=== PATIENT | male | born 1965 | race Caucasian/White ===

== ENCOUNTER 2017-06-21 18:16 | Emergency (ER) | payer OTHER ==
[2017-06-21] MEDS ORDERED: Ketorolac INJ* 30 MG/ML 1 ML VIAL IV PUSH ONE (19:46)
[2017-06-21] MEDS ORDERED: Ondansetron INJ* 2 MG/ML VIAL IV ONE ×2 (19:46→21:59)
[2017-06-21] MEDS ORDERED: HYDROmorphone* 1 MG/ML 1 ML SYR IV SLOW PU ONE ×2 (19:46→21:26)
[2017-06-21] MEDS: NS 0.9% 1000 ML* 2,000 ML IV ONE ×2 (19:58→20:41)
[2017-06-21] MEDS ORDERED: Morphine INJ* 4 MG/ML 1 ML SYRINGE IV ONE (20:14)
[2017-06-21 20:24] LABS: Albumin 4.6 g/dL (3.2-5.2); BUN/Creatinine Ratio 14.4 (8-20); Calcium 9.7 mg/dL (8.6-10.3); EGFR African American 105.4 (>60); EGFR Non-African American 81.9 (>60); Globulin 2.7 g/dL (2-4); Potassium 3.7 mmol/L (3.5-5.0); Total Bilirubin 0.4 mg/dL (0.2-1.0); Total Protein 7.3 g/dL (6.4-8.9)
[2017-06-21 20:26] LABS: Hematocrit 44 % (42-52); Hemoglobin 14.7 g/dl (14.0-18.0); Mean Corpuscular HGB Conc 34 g/dl (31-36); Mean Corpuscular Hemoglobin 31 pg (27-31); Mean Corpuscular Volume 91 fL (80-94); Mean Platelet Volume 9 um3 (7.4-10.4); Red Blood Count 4.78 10^6/ul (4.0-5.4); Red Cell Distribution Width 13 % (10.5-15); White Blood Count 10.4 10^3/ul (3.5-10.8)
[2017-06-21 21:24] LABS: Urine Bilirubin Negative (Negative); Urine Glucose Negative (Negative); Urine Nitrite Negative (Negative)
[2017-06-21] MEDS ORDERED: Ondansetron INJ* 2 MG/ML VIAL ONE (22:00)
--- NOTE | 2017-06-21 22:32 | RAD ---
CLINICAL HISTORY: Left flank pain. Surgical history includes appendectomy. COMPARISON: None TECHNIQUE: Noncontrast CT examination of the abdomen and pelvis from the lung bases through the initial tuberosities. FINDINGS: VISUALIZED LUNG BASES: The visualized lung bases are grossly clear. There is no pleural effusion. ABDOMEN AND PELVIS: Evaluation of the solid organs and vasculature is limited without intravenous contrast. The liver, spleen, pancreas and adrenal glands are grossly normal in appearance. The gallbladder is normal. There is a punctate calcification at the mid-level left kidney. There is no hydronephrosis or perinephric stranding bilaterally. Evaluation of the gastrointestinal tract is limited without oral contrast. The small and large bowel are not distended.The appendix is not visualized consistent with the patient's reported surgical history. At the descending colon there is a length of colon that exhibits mild wall thickening (coronal image 60 and axial image 95) measuring up to 7 mm in thickness. There is no definite pericolonic inflammatory change. There is no gross retroperitoneal or mesenteric lymphadenopathy. The pelvic viscera is normal in appearance. There is scattered calcified atherosclerosis of the lower abdominal aorta extending into the bilateral common iliac arteries. Degenerative changes include multilevel loss of intervertebral disc height involving the lower thoracic and lumbar spine.There are no sinister bone lesions. IMPRESSION: 1. There is one nonobstructing punctate calcification in the left kidney but no signs of hydronephrosis or perinephric stranding. 2. There is a short segment of descending colon exhibiting wall thickening up to 7 mm. Potentially this could represent a segment of colitis or simply be due to underdistention. Evaluation of the colon is limited due to lack of oral contrast. Particularly if this patient has never had screening colonoscopy in the past, direct visualization is advised after the patient's acute symptoms resolve. 3. Diverticulosis at the rectosigmoid colon but this portion of the colon is not definitely exhibit acute inflammatory changes characteristic of diverticulitis. 4. Additional chronic, degenerative and iatrogenic changes described in the body the report.
[2017-06-21] MEDS ORDERED: Orphenadrine Citrate IV* 30 MG/ML 2 ML VIAL IV ONE (23:18)
--- NOTE | 2017-06-21 23:18 | ED ---
Back Pain - HPI Summary HPI Summary: 52M presents with severe left flank pain today. He has history of kidney stones but states that is does not feel the same. He says that is feels like his entire left side is spasming. He denies any injury. He admits to nausea from the pain. He has not taken anything for the pain. He denies any hematuria, frequency, dysuria, fever, diarrhea or constipation. He has never had this pain before. He did have appendix out when younger. - History of Current Complaint Chief Complaint: EDBackInjuryPain Stated Complaint: LOWER BACK PAIN Time Seen by Provider: 06/21/17 19:43 Pain Intensity: 9 - Allergies/Home Medications Allergies/Adverse Reactions: Allergies Allergy/AdvReac Type Severity Reaction Status Date / Time Bupropion [From Wellbutrin] Allergy Unknown Verified 06/21/17 19:45 Reaction Details PMH/Surg Hx/FS Hx/Imm Hx Endocrine/Hematology History: Denies: Hx Anticoagulant Therapy Cardiovascular History: Reports: Hx Hypertension - Surgical History Surgery Procedure, Year, and Place: [facility] Infectious Disease History: No Infectious Disease History: Denies: Traveled Outside the [place] in Last 30 Days - Family History Known Family History: Positive: Cardiac Disease - Social History Alcohol Use: None Substance Use Type: Reports: None Smoking Status (MU): Current Every Day Smoker Review of Systems Negative: Fever Negative: Chest Pain Negative: Shortness Of Breath Positive: Abdominal Pain, Nausea. Negative: Vomiting, Diarrhea Positive: flank pain. Negative: dysuria All Other Systems Reviewed And Are Negative: Yes Physical Exam Triage Information Reviewed: Yes Vital Signs On Initial Exam: Initial Vitals Temp Pulse Resp BP Pulse Ox 99.1 F 74 17 169/96 96 06/21/17 18:19 06/21/17 18:19 06/21/17 18:19 06/21/17 18:19 06/21/17 18:19 Vital Signs Reviewed: Yes Appearance: Positive: Pain Distress Skin: Positive: Warm, Dry Head/Face: Positive: Normal Head/Face Inspection Eyes: Positive: Normal, Conjunctiva Clear ENT: Positive: Normal ENT inspection, Pharynx normal, TMs normal Respiratory/Lung Sounds: Positive: Clear to Auscultation, Breath Sounds Present Cardiovascular: Positive: Normal, RRR Abdomen Description: Positive: Soft, CVA Tenderness (L), Other: - tenderness left side abdomen severe Bowel Sounds: Positive: Present - Marcellus Coma Scale Coma Scale Total: 15 Diagnostics - Vital Signs Vital Signs Temp Pulse Resp BP Pulse Ox 06/21/17 22:17 59 16 140/79 94 06/21/17 22:06 16 06/21/17 20:39 18 06/21/17 20:12 98.6 F 06/21/17 19:58 20 06/21/17 18:19 99.1 F 74 17 169/96 96 - Laboratory Lab Results: Lab Results 06/21/17 06/21/17 06/21/17 Range/Units 20:00 20:00 21:15 WBC 10.4 (3.5-10.8) 10^3/ul RBC 4.78 (4.0-5.4) 10^6/ul Hgb 14.7 (14.0-18.0) g/dl Hct 44 (42-52) % MCV 91 (80-94) fL MCH 31 (27-31) pg MCHC 34 (31-36) g/dl RDW 13 (10.5-15) % Plt Count 247 (150-450) 10^3/ul MPV 9 (7.4-10.4) um3 Neut % (Auto) 63.9 (38-83) % Lymph % (Auto) 27.2 (25-47) % [place] % (Auto) 6.7 (1-9) % Eos % (Auto) 1.6 (0-6) % Baso % (Auto) 0.6 (0-2) % Absolute Neuts (auto) 6.7 (1.5-7.7) 10^3/ul Absolute Lymphs (auto) 2.8 (1.0-4.8) 10^3/ul Absolute Monos (auto) 0.7 (0-0.8) 10^3/ul Absolute Eos (auto) 0.2 (0-0.6) 10^3/ul Absolute Basos (auto) 0.1 (0-0.2) 10^3/ul Absolute Nucleated RBC 0.01 10^3/ul Nucleated RBC % 0.1 Sodium 140 (133-145) mmol/L Potassium 3.7 (3.5-5.0) mmol/L Chloride 106 (101-111) mmol/L Carbon Dioxide 26 (22-32) mmol/L Anion Gap 8 (2-11) mmol/L BUN 14 (6-24) mg/dL Creatinine 0.97 (0.67-1.17) mg/dL Est GFR ( Amer) 105.4 (>60) Est GFR (Non-Af Amer) 81.9 (>60) BUN/Creatinine Ratio 14.4 (8-20) Glucose 129 H (70-100) mg/dL Calcium 9.7 (8.6-10.3) mg/dL Total Bilirubin 0.40 (0.2-1.0) mg/dL AST 24 (13-39) U/L ALT 24 (7-52) U/L Alkaline Phosphatase 63 (34-104) U/L C-React Prot High Sens 0.40 mg/L Total Protein 7.3 (6.4-8.9) g/dL Albumin 4.6 (3.2-5.2) g/dL Globulin 2.7 (2-4) g/dL Albumin/Globulin Ratio 1.7 (1-3) Lipase 23 (11.0-82.0) U/L Urine Color Yellow Urine Appearance Clear Urine pH 5.0 (5-9) Ur Specific [place] 1.014 (1.010-1.030) Urine Protein Negative (Negative) Urine Ketones Negative (Negative) Urine Blood Negative (Negative) Urine Nitrate Negative (Negative) Urine Bilirubin Negative (Negative) Urine Urobilinogen Negative (Negative) Ur Leukocyte Esterase Negative (Negative) Urine Glucose Negative (Negative) Result Diagrams: 06/21/17 20:00 06/21/17 20:00 Lab Statement: Any lab studies that have been ordered have been reviewed, and results considered in the medical decision making process. Back Pain Course/Dx - Course Course Of Treatment: 52M presents with severe left flank pain today. He has history of kidney stones but states that is does not feel the same. He says that is feels like his entire left side is spasming. He denies any injury. He admits to nausea from the pain. He has not taken anything for the pain. He denies any hematuria, frequency, dysuria, fever, diarrhea or constipation. He has never had this pain before. on exam CVA tenderness left, tender across left abdomen. labs normal. CT no stone. do not suspect colitis as labs and symptoms do not correspond. after pain medication felt better. discussed likely muscle spasm? will treat with pain meds and muscle relaxer and told to follow up with primary. patient understands and agrees with plan. - Diagnoses Differential Diagnosis/HQI/PQRI: Positive: Strain, Sprain, Other - kidney stone Provider Diagnoses: Back pain Discharge - Discharge Plan Condition: Good Disposition: HOME Prescriptions: Methocarbamol [Robaxin-750 MG TAB] 750 mg PO TID #9 tab Methylprednisolone [Medrol Dosepak 4 MG*] 4 mg PO .SEE [employer]RE[employer]STRUCTION #1 packet oxyCODONE/Acetamin 5/325 MG* [Percocet 5/325 TAB*] 1 tab PO Q6H PRN #12 tab MDD 4 PRN Reason: Pain Patient Education Materials: Back Pain (ED) Referrals: [facility] [Outside] Additional Instructions: Follow directions on package for Medrol pack Take muscle relaxers three times a day for 3 days Use ibuprofen or Tylenol for pain every 6 hours ice/heat area, move as much as possible Follow up with primary within 5 days Return to ED if unable to ambulate or develop any new or worsening symptoms
[2017-06-21] MEDS ORDERED: oxyCODONE/Acetamin 5/325 MG* TAB PO ONE (23:21)
[2017-06-22 02:14] VITALS: BP 149/79
== END 2017-06-22 02:08 | disposition home or self-care (01) ==
LOC: ED 18:16
DX: M54.5 Low back pain (principal); F17.210 Nicotine dependence, cigarettes, uncomplicated
CPT/HCPCS: 36415; 74176; 80053; 81003; 83690; 85025; 86141; 99283; A9270-GY; J1170; J1885; J2270; J2360; J2405

== ENCOUNTER 2017-06-30 12:03 | Emergency (ER) | payer OTHER ==
--- NOTE | 2017-06-30 13:06 | ED ---
Throat Pain/Nasal Congestion - HPI Summary HPI Summary: 52 male presents with complaints of left eye pain after grinding some metal at home, while wearing safety glasses however feeling as though something got into his eye. Patient states this occurred just prior to arrival. He tried flushing it out and looking for object before arrival however was unsuccessful and was unable to see any foreign body. Patient states his vision in left eye is slightly blurry he just thinks it is from the tearing and rubbing. Admits to tearing, denies discharge and bleeding. No vision loss or photophobia. No other complaints at this time. PMHx significant for HTN and PTSD. - History of Current Complaint Chief Complaint: EDEyeProblem Time Seen by Provider: 06/30/17 12:08 Hx Obtained From: Patient Onset/Duration: Sudden Onset, Lasting Hours - 1-2, Still Present Severity: Moderate Cough: None - Allergies/Home Medications Allergies/Adverse Reactions: Allergies Allergy/AdvReac Type Severity Reaction Status Date / Time Bupropion [From Wellbutrin] Allergy Unknown Verified 06/30/17 12:33 Reaction Details PMH/Surg Hx/FS Hx/Imm Hx Endocrine/Hematology History: Denies: Hx Anticoagulant Therapy Cardiovascular History: Reports: Hx Hypertension Psychiatric History: Reports: Hx Post Traumatic Stress Disorder - Surgical History Surgery Procedure, Year, and Place: [facility] - Immunization History Immunizations Up to Date: Yes Infectious Disease History: No Infectious Disease History: Denies: Traveled Outside the [place] in Last 30 Days - Family History Known Family History: Positive: Cardiac Disease - Social History Alcohol Use: None Substance Use Type: Reports: None Smoking Status (MU): Current Every Day Smoker Review of Systems Constitutional: Negative Positive: Blurred Vision, Drainage - tearing, Other - pain ENT: Negative Cardiovascular: Negative Respiratory: Negative Neurological: Negative All Other Systems Reviewed And Are Negative: Yes Physical Exam Triage Information Reviewed: Yes Vital Signs On Initial Exam: Initial Vitals Temp Pulse Resp BP Pulse Ox 98.1 F 73 18 148/91 98 06/30/17 12:04 06/30/17 12:04 06/30/17 12:04 06/30/17 12:04 06/30/17 12:04 Vital Signs Reviewed: Yes Appearance: Positive: Well-Appearing, Well-Nourished, Pain Distress - moderate, very jumpy with certain eye movement or opening eye Skin: Positive: Warm, Skin Color Reflects Adequate Perfusion, Dry. Negative: Erythema @ Head/Face: Positive: Normal Head/Face Inspection Eyes: Positive: EOMI, YU, Conjunctiva Inflammed - left appears irritated, Other: - clear tearing, drainage left. no FB noted on regular exam or fluroscein stain. no uptake noted. somewhat difficult exam due to patient' pain tolerance. normal fundoscopic exam from what able to see. lids appear normal. no obvious rust rings noted ENT: Positive: Hearing grossly normal, Pharynx normal Neck: Positive: Supple, Nontender Respiratory/Lung Sounds: Positive: Clear to Auscultation, Breath Sounds Present. Negative: Rales, Rhonchi, Wheezes Cardiovascular: Positive: Normal, RRR, Pulses are Symmetrical in both Upper and Lower Extremities. Negative: Murmur, Rub Musculoskeletal: Positive: Normal, Strength/ROM Intact Neurological: Positive: Normal, Sensory/Motor Intact, Alert, Oriented to Person Place, Time Psychiatric: Positive: Affect/Mood Appropriate, Anxious Procedures - Eye Procedure Alcaine Drops Administered: Yes - fluroscein stain completed, no uptake, no FB noted Diagnostics - Vital Signs Vital Signs Temp Pulse Resp BP Pulse Ox 06/30/17 12:19 98.1 F 73 18 148/91 98 06/30/17 12:04 98.1 F 73 18 148/91 98 - Laboratory Lab Statement: Any lab studies that have been ordered have been reviewed, and results considered in the medical decision making process. EENT Course/Dx - Course Course Of Treatment: no FB or corneal abrasion obviously noted with PE exam and fluroscein stain. Patient had some relief after applying tetracaine drops hwever was still in some pain. Unable to open his eye without pain. Tearing and blurry vision. Due to JOSE spoke with Dr Guevara opthomology who states to have him follow up today in his office at 3:45. Concern for smaller debris/FB that may be in eye due to patient's description of pain and actions. Difficult to examine in ED. - Differential Diagnoses Differential Diagnoses: Abrasion, Foreign Body, Keratitis - Diagnoses Provider Diagnoses: Acute left eye pain - Provider Notifications Discussed Care Of Patient With: Dr Guevara Time Discussed With Above Provider: 13:30 Instructed by Provider To: Send To Office Now - 3:45pm Discharge - Discharge Plan Condition: Stable Disposition: HOME Patient Education Materials: Corneal Abrasion (ED), Eye Foreign Body (ED) Referrals: No Primary Care Phys,NOPCP [Primary Care Provider] - Mohinder Anton MD [Medical Doctor] - Additional Instructions: Please go to the eye doctor at 3:45pm, as they are expecting you for further evaluation and treatment. Address and phone number are below.
[2017-06-30] MEDS ORDERED: Naproxen TAB* 250 MG PO ONE (13:10)
[2017-06-30 13:49] VITALS: BP 160/76
== END 2017-06-30 13:50 | disposition home or self-care (01) ==
LOC: ED 12:03
DX: H57.12 Ocular pain, left eye (principal); H53.8 Other visual disturbances; F17.210 Nicotine dependence, cigarettes, uncomplicated
CPT/HCPCS: 99281; A9270-GY

== ENCOUNTER 2017-08-27 09:13 | Emergency (ER) | payer SELFPAY ==
[2017-08-27 10:00] VITALS: BP 139/75
[2017-08-27] MEDS ORDERED: Ondansetron ODT TAB* 4 MG PO ONE ×2 (10:06→11:08)
[2017-08-27] MEDS ORDERED: hydrOXYzine HCL TAB* 50 MG PO ONE (10:07)
[2017-08-27] MEDS ORDERED: hydrOXYzine HCL TAB* 25 MG PO ONE (10:25)
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
== END 2017-08-27 11:30 | disposition home or self-care (01) ==
LOC: UCEAST 09:13
DX: F41.0 Panic disorder [episodic paroxysmal anxiety] (principal); F43.10 Post-traumatic stress disorder, unspecified; I10 Essential (primary) hypertension; K21.9 Gastro-esophageal reflux disease without esophagitis; F17.210 Nicotine dependence, cigarettes, uncomplicated; Z79.82 Long term (current) use of aspirin
CPT/HCPCS: 93005; 99212; A9270-GY; G0463

== ENCOUNTER 2017-09-17 10:31 | Emergency (ER) | payer SELFPAY ==
[2017-09-17] MEDS ORDERED: NS 0.9% 1000 ML* 1,000 ML IV ONE ×2 (11:18→11:37)
[2017-09-17] MEDS ORDERED: Morphine INJ* 4 MG/ML 1 ML CARPUJECT IV ONE ×2 (11:37→13:22)
[2017-09-17] MEDS ORDERED: Ondansetron INJ* 2 MG/ML VIAL IV ONE (11:37)
[2017-09-17 12:54] LABS: Hematocrit 45 % (42-52); Hemoglobin 15.2 g/dl (14.0-18.0); Mean Corpuscular HGB Conc 34 g/dl (31-36); Mean Corpuscular Hemoglobin 30 pg (27-31); Mean Corpuscular Volume 89 fL (80-94); Mean Platelet Volume 9 um3 (7.4-10.4); Red Blood Count 5.02 10^6/ul (4.0-5.4); Red Cell Distribution Width 13 % (10.5-15); White Blood Count 9.8 10^3/ul (3.5-10.8)
[2017-09-17 13:00] LABS: Urine Bilirubin Negative (Negative); Urine Glucose Negative (Negative); Urine Nitrite Negative (Negative)
[2017-09-17 13:06] LABS: ALT 18 U/L (7-52); AST 24 U/L (13-39); Albumin 4.6 g/dL (3.2-5.2); Alkaline Phosphatase 58 U/L (34-104); Anion Gap 6 mmol/L (2-11); Blood Urea Nitrogen 17 mg/dL (6-24); C Reactive Protein < 1.00 mg/L (< 5.00); CO2 Carbon Dioxide 25 mmol/L (22-32); Calcium 9.9 mg/dL (8.6-10.3); Chloride 108 mmol/L (101-111); EGFR African American 122.7 (>60); EGFR Non-African American 95.4 (>60); Globulin 2.6 g/dL (2-4); Glucose 103 mg/dL (70-100); Lipase 24 U/L (11.0-82.0); Potassium 4.1 mmol/L (3.5-5.0); Sodium 139 mmol/L (133-145); Total Protein 7.2 g/dL (6.4-8.9)
[2017-09-17] MEDS ORDERED: Iohexol 300* (CONTRAST) 10 ML SDV IV ONE (14:11)
--- NOTE | 2017-09-17 14:49 | RAD ---
Indication: Abdominal pain. Contrast: Administered 99.0 ml of OMNIPAQUE 300 mg/ml CT of the abdomen and pelvis was performed after oral and IV contrast demonstration. Coronal and sagittal reconstructed images were obtained. The lung bases demonstrate no pleural fluid, nodules or masses. Heart is of normal size without evidence of pericardial effusion. Liver is normal in size. No focal lesions or intrahepatic duct dictation is noted. The gallbladder demonstrates no calcified gallstones. No pericholecystic fluid or wall thickening is identified. The spleen is normal in size. No adrenal lesions are noted. The kidneys demonstrate symmetric nephrograms. The retroperitoneal lymphadenopathy is noted. No dilated bowel are noted. CT of the pelvis demonstrates wall thickening of the sigmoid colon. Stranding of the pericolonic fat is noted. No evidence of peridiverticular abscess is noted. No hernias are noted. IMPRESSION: Findings suggestive of diverticulitis without evidence of peridiverticular abscess. No other masses or fluid collections are noted.
[2017-09-17] MEDS ORDERED: Ciprofloxacin 400MG IVPREMIX(* 400 MG/200 ML BAG IVPB ONE (15:09)
[2017-09-17] MEDS ORDERED: metroNIDAZOLE TAB* 250 MG PO ONE (15:09)
[2017-09-17] MEDS ORDERED: Ketorolac INJ* 30 MG/ML 1 ML VIAL IV PUSH ONE (15:16)
[2017-09-17] MEDS ORDERED: oxyCODONE/Acetamin 5/325 MG* TAB PO ONE (18:26)
[2017-09-17 19:38] VITALS: BP 167/94
--- NOTE | 2017-09-18 18:56 | ED ---
Noelle Talavera Thomas, scribed for Arturo Villalobos MD on 09/17/17 at 1148 . Abdominal Pain/Male - HPI Summary HPI Summary: The pt is a 52 y/o M presenting to the ED c/o lower abd pain that began this morning at 05:00. The pain is constant. The pain is rated 8/10. The pain is aggravated by palpation and is alleviated by nothing. 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 Pt denies vomiting, diarrhea, and urinary retention. PSHx includes appendectomy. - History of Current Complaint Chief Complaint: EDAbdPain Stated Complaint: LOWER ABD PAIN Time Seen by Provider: 09/17/17 11:27 Hx Obtained From: Patient Onset/Duration: Lasting Hours - onset of pain today at 05:00, Still Present Severity Currently: Severe Pain Intensity: 8 Pain Scale Used: 0-10 Numeric Location: Other - Lower abd Radiates: No Aggravating Factor(s): Other: - Palpation Alleviating Factor(s): Nothing Associated Signs And Symptoms: Positive: Nausea. Negative: Vomiting, Diarrhea, Other - NEGATIVE: urinary retention - Allergies/Home Medications Allergies/Adverse Reactions: Allergies Allergy/AdvReac Type Severity Reaction Status Date / Time Bupropion [From Wellbutrin] Allergy Unknown Verified 06/30/17 12:33 Reaction Details apples Allergy Unknown Uncoded 08/27/17 09:55 Reaction Details PMH/Surg Hx/FS Hx/Imm Hx Previously Healthy: No Endocrine/Hematology History: Denies: Hx Anticoagulant Therapy Cardiovascular History: Reports: Hx Hypertension Psychiatric History: Reports: Hx Post Traumatic Stress Disorder - Surgical History Surgery Procedure, Year, and Place: APP Infectious Disease History: No Infectious Disease History: Denies: Traveled Outside the [place] in Last 30 Days - Family History Known Family History: Positive: Cardiac Disease - Social History Alcohol Use: None Hx Substance Use: No Substance Use Type: Reports: None Hx Tobacco Use: Yes Smoking Status (MU): Current Every Day Smoker Amount Used/How Often: 1/2 ppd Review of Systems Negative: Fever Positive: Abdominal Pain - lower, Nausea. Negative: Vomiting, Diarrhea Negative: other - NEGATIVE: urinary retention All Other Systems Reviewed And Are Negative: Yes Physical Exam - Summary Physical Exam Summary: VITAL SIGNS: Reviewed. GENERAL: Patient is a well-developed and nourished male who is lying comfortable in the stretcher. Patient is not in any acute respiratory distress. HEAD AND FACE: Normocephalic and atraumatic. EYES: PERRLA, EOMI x 2, No injected conjunctiva. EARS: Hearing grossly intact. Ear canals and tympanic membranes are WNL. MOUTH: Oropharynx within normal limits. NECK: Supple, trachea is midline, no adenopathy, no JVD. CHEST: Symmetric, no tenderness at palpation LUNGS: Clear to auscultation bilaterally. No wheezing or crackles. CVS: RRR, S1 and S2 present, no murmurs or gallops appreciated. ABDOMEN: Positive tenderness to the lower abdomen, especially the LLQ. Soft. No signs of distention. Positive bowel sounds. No rebound no guarding, and no masses palpated. No abdominal bruit or pulsations. EXTREMITIES: FROM in all major joints, no edema, no cyanosis or clubbing. NEURO: Alert and oriented x 3. No acute neurological deficits. Speech is normal. SKIN: Dry and warm Triage Information Reviewed: Yes Vital Signs On Initial Exam: Initial Vitals Temp Pulse Resp BP Pulse Ox 98.5 F 74 20 136/75 98 09/17/17 10:44 09/17/17 10:44 09/17/17 10:44 09/17/17 10:44 09/17/17 10:44 Vital Signs Reviewed: Yes Diagnostics - Vital Signs Vital Signs Temp Pulse Resp BP Pulse Ox 09/17/17 10:44 98.5 F 74 20 136/75 98 - Laboratory Result Diagrams: 09/17/17 12:20 09/17/17 12:20 Lab Statement: Any lab studies that have been ordered have been reviewed, and results considered in the medical decision making process. - CT CT Abd/Pel CT Interpretation: Positive (See Comments) - Findings suggestive of diverticulitis without evidence of peridiverticular abscess. No other masses or fluid collections are noted. ED physician has reviewed this report and agrees. CT Interpretation Completed By: Radiologist Abdominal Pain Fem Course/Dx - Course Assessment/Plan: The pt is a 52 y/o M presenting to the ED c/o lower abd pain that began this morning at 05:00. The pain is constant. The pain is rated 8/10. The pain is aggravated by palpation and is alleviated by nothing. 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 Pt denies vomiting, diarrhea, and urinary retention. PSHx includes appendectomy. Test results are without significant abnormalities. UA is negative for URI. CT Abd/ Pel shows Findings suggestive of diverticulitis without evidence of peridiverticular abscess. No other masses or fluid collections are noted. ED physician has reviewed this report and agrees. In the ED course, the patient was given IV fluids, Zofran for the nausea, and morphine for the pain. The patient was given an additional dose of Toradol. He was also given ciprofloxacin and Flagyl for the diverticulitis. He will be discharged home with follow up with primary care. The patient is hemodynamically stable and alert and oriented x 3. - Diagnoses Provider Diagnoses: Diverticulitis Discharge - Discharge Plan Condition: Stable Disposition: HOME Patient Education Materials: Diverticulitis (ED), Diverticulitis Diet (ED) Referrals: [facility] [place] PHYSICIAN REFERRAL [Outside] - 3 Days Additional Instructions: Follow up with your primary care provider in 2-3 days. If you do not have one, you can use the [facility] [place] Physician Referral Service to find one and make an appointment. Return to the emergency department for any new or worsening symptoms. The documentation as recorded by the Noelle stone Thomas accurately reflects the service I personally performed and the decisions made by , Arturo Villalobos MD.
== END 2017-09-17 19:36 | disposition home or self-care (01) ==
LOC: ED 10:31
DX: K57.92 Diverticulitis of intestine, part unspecified, without perforation or abscess without bleeding (principal); R10.30 Lower abdominal pain, unspecified; F17.210 Nicotine dependence, cigarettes, uncomplicated
CPT/HCPCS: 36415; 74177; 80053; 81003; 83605; 83690; 85025; 86140; 96374; 99284; A9270-GY; J0744; J1885; J2270; J2405; Q9967

== ENCOUNTER 2017-10-21 16:44 | Emergency (ER) | payer OTHER ==
[2017-10-21 17:02] VITALS: BP 148/90
[2017-10-21] MEDS ORDERED: Ibuprofen TAB* 600 MG PO ONE (17:54)
--- NOTE | 2017-10-21 18:28 | RAD ---
INDICATION: Right elbow pain-overuse COMPARISON: None TECHNIQUE: AP, lateral, and oblique views were obtained. FINDINGS: There is no acute bony change. There is minor spurring coronoid process. The elbow articulates normally. There is no joint effusion. IMPRESSION: NO ACUTE BONY FINDINGS.
--- NOTE | 2017-10-21 19:27 | ED ---
Upper Extremity Pain - HPI Summary HPI Summary: Patient presents to the ED with CC of right posterior elbow pain. He states today he was hammering something when he began to feel pain, he continued despite the pain. About an hour later, he states he was unable to lift anything d/t 10/10 pain discretely located over the posterior elbow and just superior to the posterior elbow. Denies numbness, tingling, color or temperature changes. Denies other injuries. Has nerve damage at baseline and takes gabapentin and meloxicam 15mg. - History of Current Complaint Chief Complaint: EDExtremityUpper Stated Complaint: RT ARM INJURY Time Seen by Provider: 10/21/17 18:04 Hx Obtained From: Patient Onset/Duration: Started Hours Ago Timing: Constant Severity Initially: Severe Severity Currently: Severe Pain Location: Elbow Character: Aching Aggravating Factor(s): Movement, Lifting, Extension Alleviating Factor(s): Rest, Ice Associated Signs & Symptoms: Negative: Swelling, Redness, Bruising, Weakness, Numbness/Tingling Related History: Dominant Hand Right - Risk Factors Non-Orthopedic Risk Factor: Negative DVT Risk Factors: Negative Septic Arthritis Risk Factor: Negative Compartment Syndrome Risk Factors: Pain - Allergies/Home Medications Allergies/Adverse Reactions: Allergies Allergy/AdvReac Type Severity Reaction Status Date / Time Bupropion [From Wellbutrin] Allergy Unknown Verified 06/30/17 12:33 Reaction Details apples Allergy Unknown Uncoded 08/27/17 09:55 Reaction Details PMH/Surg Hx/FS Hx/Imm Hx Previously Healthy: Yes Endocrine/Hematology History: Denies: Hx Anticoagulant Therapy, Hx Diabetes Cardiovascular History: Reports: Hx Hypertension History: Denies: Hx Renal Disease Psychiatric History: Reports: Hx Post Traumatic Stress Disorder - Surgical History Surgery Procedure, Year, and Place: APPY - Immunization History Hx Pertussis Vaccination: No Immunizations Up to Date: Unable to Obtain/Confirm Infectious Disease History: No Infectious Disease History: Denies: Traveled Outside the [place] in Last 30 Days - Family History Known Family History: Positive: Cardiac Disease - Social History Occupation: Employed Full-time Lives: With Family Alcohol Use: None Hx Substance Use: No Substance Use Type: Reports: None Hx Tobacco Use: Yes Smoking Status (MU): Current Every Day Smoker Amount Used/How Often: 1/2 ppd Review of Systems Constitutional: Negative Negative: Fever, Chills, Fatigue Eyes: Negative Cardiovascular: Negative Respiratory: Negative Genitourinary: Negative Positive: no symptoms reported, see HPI Positive: Arthralgia - posterior elbow pain Skin: Negative All Other Systems Reviewed And Are Negative: Yes Physical Exam Triage Information Reviewed: Yes Vital Signs On Initial Exam: Initial Vitals Temp Pulse Resp BP Pulse Ox 98.8 F 58 18 148/90 99 10/21/17 16:58 10/21/17 16:58 10/21/17 16:58 10/21/17 16:58 10/21/17 16:58 Vital Signs Reviewed: Yes Appearance: Positive: Well-Appearing, Well-Nourished Skin: Positive: Warm, Skin Color Reflects Adequate Perfusion Head/Face: Positive: Normal Head/Face Inspection Eyes: Positive: EOMI, YU, Conjunctiva Clear Neck: Positive: Supple, Nontender, No Lymphadenopathy Respiratory/Lung Sounds: Positive: Clear to Auscultation, Breath Sounds Present Cardiovascular: Positive: Normal, RRR, Pulses are Symmetrical in both Upper and Lower Extremities Musculoskeletal: Positive: Pain @ - posterior elbow on palpation; pain with flexion and extension of the wrist; no crepitus or deformities. no erythema or warmth Neurological: Positive: Sensory/Motor Intact, Alert, Oriented to Person Place, Time, Speech Normal Psychiatric: Positive: Normal, Affect/Mood Appropriate - Marcellus Coma Scale Coma Scale Total: 15 Diagnostics - Vital Signs Vital Signs Temp Pulse Resp BP Pulse Ox 10/21/17 16:58 98.8 F 58 18 148/90 99 - Laboratory Lab Statement: Any lab studies that have been ordered have been reviewed, and results considered in the medical decision making process. Course/Dx - Course Course Of Treatment: Patient is evaluted for elbow pain. Xray negative for acute findings including swelling and erythema. Denies other symptoms. Pain 10 /10. Ice applied on arrival. He is given tramadol rx for tendonitis for oversue injury. Note give 2x days for work and sling given. Treatment options explained to patient. Patient understands the plan, voices no concerns at this time and understands the return precatuions given to them if any symptoms become worse. They are OK for discharge at this time. VS stable on discharge. - Diagnoses Provider Diagnoses: Tendonitis Discharge - Discharge Plan Condition: Stable Disposition: HOME Prescriptions: traMADol TAB* [Ultram*] 50 mg PO Q8H PRN #15 tab MDD 3 PRN Reason: Pain Patient Education Materials: Tendinitis (ED) Forms: *Work Release Referrals: No Primary Care Phys,NOPCP [Primary Care Provider] - Additional Instructions: If symptoms persist, follow up with your PCP as you might need repeat imaging Continue your at home meloxicam 15mg daily For worsening pain, you may use the tramadol 50mg up to three times daily Sling only for improvement of symptoms.
== END 2017-10-21 19:29 | disposition home or self-care (01) ==
LOC: ED 16:44
DX: M77.9 Enthesopathy, unspecified (principal); M25.521 Pain in right elbow
CPT/HCPCS: 99282; A9270-GY

== ENCOUNTER 2017-10-28 14:20 | Emergency (ER) | payer OTHER ==
[2017-10-28 14:26] VITALS: BP 173/93
[2017-10-28] MEDS ORDERED: Morphine INJ* 4 MG/ML 1 ML CARPUJECT IV ONE (15:51)
[2017-10-28] MEDS ORDERED: Ondansetron INJ* 2 MG/ML VIAL IV ONE (16:00)
[2017-10-28] MEDS ORDERED: NS 0.9% 1000 ML* 1,000 ML IV SCH (16:00)
[2017-10-28] MEDS ORDERED: Ondansetron INJ* 2 MG/ML VIAL ONE (16:02)
[2017-10-28 16:09] LABS: Hematocrit 43 % (42-52); Hemoglobin 14.5 g/dl (14.0-18.0); Mean Corpuscular HGB Conc 34 g/dl (31-36); Mean Corpuscular Hemoglobin 30 pg (27-31); Mean Corpuscular Volume 89 fL (80-94); Mean Platelet Volume 9 um3 (7.4-10.4); Red Blood Count 4.79 10^6/ul (4.0-5.4); Red Cell Distribution Width 13 % (10.5-15); White Blood Count 6.7 10^3/ul (3.5-10.8)
[2017-10-28 16:24] LABS: Albumin 4.6 g/dL (3.2-5.2); BUN/Creatinine Ratio 13.2 (8-20); Calcium 9.6 mg/dL (8.6-10.3); EGFR African American 113.4 (>60); EGFR Non-African American 88.2 (>60); Globulin 2.4 g/dL (2-4); Potassium 4.4 mmol/L (3.5-5.0); Total Bilirubin 0.3 mg/dL (0.2-1.0)
[2017-10-28 17:06] LABS: Urine Bilirubin Negative (Negative); Urine Glucose Negative (Negative); Urine Nitrite Negative (Negative)
[2017-10-28] MEDS ORDERED: Iohexol 300* (CONTRAST) 10 ML SDV IV ONE (17:36)
== END 2017-10-28 19:44 | disposition left against medical advice (07) ==
LOC: ED 14:20
DX: R10.30 Lower abdominal pain, unspecified (principal); Z53.21 Procedure and treatment not carried out due to patient leaving prior to being seen by health care provider
CPT/HCPCS: 36415; 80053; 81003; 83690; 85025; 99282; J2270; J2405

== ENCOUNTER 2018-03-18 17:04 | Emergency (ER) | payer OTHER ==
[2018-03-18 17:10] VITALS: BP 172/98
== END 2018-03-18 20:20 | disposition left against medical advice (07) ==
LOC: ED 17:04
DX: R10.9 Unspecified abdominal pain (principal); Z53.21 Procedure and treatment not carried out due to patient leaving prior to being seen by health care provider

== ENCOUNTER 2018-04-21 13:25 | Emergency (ER) | payer OTHER ==
[2018-04-21] MEDS ORDERED: Metoclopramide IV* 5 MG/ML 2 ML VIAL IV ONE (13:38)
[2018-04-21] MEDS ORDERED: Morphine INJ* 10 MG/ML 1 ML CARPUJECT IV ONE (13:38)
[2018-04-21] MEDS ORDERED: NS 0.9% 1000 ML* 1,000 ML IV ONE (13:38)
[2018-04-21] MEDS ORDERED: Morphine VIAL* 4 MG/ML VIAL (1 ml vial) IV ONE ×2 (13:44→13:55)
[2018-04-21] MEDS ORDERED: Ketorolac INJ* 30 MG/ML 1 ML VIAL IV PUSH ONE (14:51)
[2018-04-21] MEDS ORDERED: Ketorolac INJ* 30 MG/ML 1 ML VIAL ONE (14:53)
--- NOTE | 2018-04-21 14:55 | RAD ---
HISTORY: Right testicular pain COMPARISONS: None TECHNIQUE: Multiple transverse and longitudinal ultrasound images were obtained of the scrotum, using grayscale, color Doppler, and spectral Doppler imaging. FINDINGS: RIGHT: RIGHT TESTICLE: The right testicle measures 5.1 x 2.2 x 3.6 cm. The right testicle is homogeneous in echotexture, without testicular parenchymal mass. Normal arterial and venous waveforms are identified within the right testicle on spectral Doppler imaging. RIGHT EPIDIDYMIS: The right epididymis measures 1.2 cm at the head. RIGHT SCROTUM: There is no hydrocele or varicocele. LEFT: LEFT TESTICLE: The left testicle measures 5.2 x 2.3 x 3.6 cm. The left testicle is homogeneous in echotexture, without testicular parenchymal mass. Normal arterial and venous waveforms are identified within the left testicle on spectral Doppler imaging. LEFT EPIDIDYMIS: The left epididymis measures 1 cm at the head. LEFT SCROTUM: There is no hydrocele or varicocele. OTHER: None IMPRESSION: NO TESTICULAR PARENCHYMAL MASS. NO SONOGRAPHIC FEATURES OF TORSION. PLEASE NOTE THAT PARTIAL OR INTERMITTENT TORSION MAY BE SONOGRAPHICALLY NORMAL.
[2018-04-21 14:56] LABS: ABS Basophils 0 10^3/ul (0-0.2); ABS Eosinophils 0.2 10^3/ul (0-0.6); ABS Lymphocytes 2.7 10^3/ul (1.0-4.8); ABS Monocytes 0.8 10^3/ul (0-0.8); ABS Neutrophils 4.8 10^3/ul (1.5-7.7); ABS Nucleated RBC 0 10^3/ul; Eosinophil % 2.3 % (0-6); Hematocrit 41 % (42-52); Lymphocyte % 31.7 % (25-47); Mean Corpuscular HGB Conc 34 g/dl (31-36); Mean Corpuscular Hemoglobin 31 pg (27-31); Mean Corpuscular Volume 91 fL (80-94); Mean Platelet Volume 8.6 um3 (7.4-10.4); Nucleated Red Blood Cells % 0; Platelet Count 238 10^3/ul (150-450); Red Blood Count 4.47 10^6/ul (4.0-5.4); Red Cell Distribution Width 14 % (10.5-15); White Blood Count 8.5 10^3/ul (3.5-10.8)
[2018-04-21 15:13] LABS: INR 0.82 (0.77-1.02)
--- NOTE | 2018-04-21 15:30 | RAD ---
INDICATION: Right renal colic. COMPARISON: Correlation is made with a prior CT of the abdomen and pelvis from September 17, 2017. Correlation is also made with a study from June 21, 2017. TECHNIQUE: A CT scan of the abdomen and pelvis was performed without intravenous or oral contrast. Contiguous axial sections were obtained from the lung bases through the symphysis pubis. Images were reconstructed in the coronal and sagittal planes. FINDINGS: The lung bases are clear. No pleural effusion is present. The liver and spleen are within normal limits in size without significant focal abnormality on this noncontrast study. No calcified gallstones are seen. The pancreas appears to be within normal limits in size. There are 2 hypodense nodules within the right adrenal gland measuring 1.3 x 0.9 and 1.6 x 1.2 cm each. These both measure less than 5 Hounsfield units and are unchanged from the prior studies and most consistent with adenomas. The left adrenal gland appears normal. There is a small punctate 1 mm left renal calculus which is nonobstructing. There is no evidence for hydronephrosis. No ureteral or bladder calculi are seen. The aorta is normal in caliber with mild calcific plaque present. No significant enlarged retroperitoneal lymph nodes are seen. The stomach is mildly distended with food debris. The small bowel and colon appear nondistended. The patient is status post appendectomy by history. There is mild to moderate descending and sigmoid diverticulosis without evidence for diverticulitis. No free intraperitoneal air or fluid is seen. No significant focal osseous abnormality is seen. IMPRESSION: 1. SMALL NONOBSTRUCTING LEFT RENAL CALCULUS. 2. SMALL RIGHT ADRENAL NODULES, UNCHANGED FAVORING BENIGN ADENOMAS.
[2018-04-21 16:49] LABS: Urine Appearance Clear; Urine Blood Negative (Negative); Urine Color Yellow; Urine Ketones Negative (Negative); Urine Protein Negative (Negative); Urine Specific Gravity 1.016 (1.010-1.030); Urine Urobilinogen Negative (Negative)
[2018-04-21 17:13] VITALS: BP 129/67
--- NOTE | 2018-04-21 18:52 | ED ---
Kalpana Talavera Julia, scribed for Nicolas Burton on 04/21/18 at 1340 . GI/ HPI - HPI Summary HPI Summary: This patient is a 52 year old M BIBA to [facility] with a chief complaint of sudden R testicular pain for the past hour after sanding his deck. Pain is 10/10 in severity. Denies abdominal pain. Pt has hx of testicular torsion with similar symptoms. - History of Current Complaint Chief Complaint: EDUrogenitalProblems Time Seen by Provider: 04/21/18 13:34 Stated Complaint: TESTICULAR PAIN Hx Obtained From: Patient Onset/Duration: Started Hours Ago Timing: Constant Current Severity: Severe Pain Intensity: 10 Location of Pain: Other - R testicle Additional Locations for Males: Testicles Associated Signs and Symptoms: Positive: Negative Aggravating Factor(s): Movement - Allergy/Home Medications Allergies/Adverse Reactions: Allergies Allergy/AdvReac Type Severity Reaction Status Date / Time bupropion Allergy Unknown Verified 03/18/18 17:06 Reaction Details escitalopram [From Lexapro] Allergy See Comment Verified 04/21/18 13:32 apples Allergy Unknown Uncoded 03/18/18 17:06 Reaction Details PMH/Surg Hx/FS Hx/Imm Hx Endocrine/Hematology History: Denies: Hx Anticoagulant Therapy, Hx Diabetes Cardiovascular History: Reports: Hx Hypertension GI History: Reports: Hx Diverticulosis History: Denies: Hx Renal Disease Psychiatric History: Reports: Hx Post Traumatic Stress Disorder - Surgical History Surgery Procedure, Year, and Place: APPY Infectious Disease History: No Infectious Disease History: Denies: Traveled Outside the [place] in Last 30 Days - Family History Known Family History: Positive: Cardiac Disease - Social History Alcohol Use: None Hx Substance Use: No Substance Use Type: Reports: None Hx Tobacco Use: Yes Smoking Status (MU): Former Smoker Amount Used/How Often: 1/2 ppd Review of Systems Negative: Abdominal Pain Positive: pain - R testicle All Other Systems Reviewed And Are Negative: Yes Physical Exam - Summary Physical Exam Summary: Appearance: Well appearing, no pain distress Skin: warm, dry, reflects adequate perfusion Head/face: normal Eyes: EOMI, YU ENT: normal Neck: supple, non-tender Respiratory: CTA, breath sounds present Cardiovascular: RRR, pulses symmetrical Abdomen: non-tender, soft Bowel: present Musculoskeletal: normal, strength/ROM intact Neuro: normal, sensory motor intact, A&Ox3 : tenderness to R scrotom. Triage Information Reviewed: Yes Vital Signs On Initial Exam: Initial Vitals Temp Pulse Resp BP Pulse Ox 98.9 F 76 16 152/90 100 04/21/18 13:29 04/21/18 13:29 04/21/18 13:29 04/21/18 13:29 04/21/18 13:29 Vital Signs Reviewed: Yes Diagnostics - Vital Signs Vital Signs Temp Pulse Resp BP Pulse Ox 04/21/18 13:29 98.9 F 76 16 152/90 100 - Laboratory Lab Results: Lab Results 04/21/18 04/21/18 04/21/18 Range/Units 14:40 14:40 14:43 WBC 8.5 (3.5-10.8) 10^3/ul RBC 4.47 (4.0-5.4) 10^6/ul Hgb 14.0 (14.0-18.0) g/dl Hct 41 L (42-52) % MCV 91 (80-94) fL MCH 31 (27-31) pg MCHC 34 (31-36) g/dl RDW 14 (10.5-15) % Plt Count 238 (150-450) 10^3/ul MPV 8.6 (7.4-10.4) um3 Neut % (Auto) 56.1 (38-83) % Lymph % (Auto) 31.7 (25-47) % [place] % (Auto) 9.4 H (0-7) % Eos % (Auto) 2.3 (0-6) % Baso % (Auto) 0.5 (0-2) % Absolute Neuts (auto) 4.8 (1.5-7.7) 10^3/ul Absolute Lymphs (auto) 2.7 (1.0-4.8) 10^3/ul Absolute Monos (auto) 0.8 (0-0.8) 10^3/ul Absolute Eos (auto) 0.2 (0-0.6) 10^3/ul Absolute Basos (auto) 0 (0-0.2) 10^3/ul Absolute Nucleated RBC 0 10^3/ul Nucleated RBC % 0 INR (Anticoag Therapy) 0.82 (0.77-1.02) APTT 26.4 (26.0-36.3) seconds Sodium 141 (139-145) mmol/L Potassium 3.8 (3.5-5.0) mmol/L Chloride 107 (101-111) mmol/L Carbon Dioxide 26 (22-32) mmol/L Anion Gap 8 (2-11) mmol/L BUN 13 (6-24) mg/dL Creatinine 0.93 (0.67-1.17) mg/dL Est GFR ( Amer) 110.6 (>60) Est GFR (Non-Af Amer) 86.0 (>60) BUN/Creatinine Ratio 14.0 (8-20) Glucose 102 H (70-100) mg/dL Calcium 9.3 (8.6-10.3) mg/dL Total Bilirubin 0.30 (0.2-1.0) mg/dL AST 22 (13-39) U/L ALT 14 (7-52) U/L Alkaline Phosphatase 59 (34-104) U/L Total Protein 6.5 (6.4-8.9) g/dL Albumin 4.1 (3.2-5.2) g/dL Globulin 2.4 (2-4) g/dL Albumin/Globulin Ratio 1.7 (1-3) Lipase 27 (11.0-82.0) U/L Urine Color Urine Appearance Urine pH (5-9) Ur Specific [place] (1.010-1.030) Urine Protein (Negative) Urine Ketones (Negative) Urine Blood (Negative) Urine Nitrate (Negative) Urine Bilirubin (Negative) Urine Urobilinogen (Negative) Ur Leukocyte Esterase (Negative) Urine Glucose (Negative) Blood Type Antibody Screen 04/21/18 04/21/18 Range/Units 14:43 16:19 WBC (3.5-10.8) 10^3/ul RBC (4.0-5.4) 10^6/ul Hgb (14.0-18.0) g/dl Hct (42-52) % MCV (80-94) fL MCH (27-31) pg MCHC (31-36) g/dl RDW (10.5-15) % Plt Count (150-450) 10^3/ul MPV (7.4-10.4) um3 Neut % (Auto) (38-83) % Lymph % (Auto) (25-47) % [place] % (Auto) (0-7) % Eos % (Auto) (0-6) % Baso % (Auto) (0-2) % Absolute Neuts (auto) (1.5-7.7) 10^3/ul Absolute Lymphs (auto) (1.0-4.8) 10^3/ul Absolute Monos (auto) (0-0.8) 10^3/ul Absolute Eos (auto) (0-0.6) 10^3/ul Absolute Basos (auto) (0-0.2) 10^3/ul Absolute Nucleated RBC 10^3/ul Nucleated RBC % INR (Anticoag Therapy) (0.77-1.02) APTT (26.0-36.3) seconds Sodium (139-145) mmol/L Potassium (3.5-5.0) mmol/L Chloride (101-111) mmol/L Carbon Dioxide (22-32) mmol/L Anion Gap (2-11) mmol/L BUN (6-24) mg/dL Creatinine (0.67-1.17) mg/dL Est GFR ( Amer) (>60) Est GFR (Non-Af Amer) (>60) BUN/Creatinine Ratio (8-20) Glucose (70-100) mg/dL Calcium (8.6-10.3) mg/dL Total Bilirubin (0.2-1.0) mg/dL AST (13-39) U/L ALT (7-52) U/L Alkaline Phosphatase (34-104) U/L Total Protein (6.4-8.9) g/dL Albumin (3.2-5.2) g/dL Globulin (2-4) g/dL Albumin/Globulin Ratio (1-3) Lipase (11.0-82.0) U/L Urine Color Yellow Urine Appearance Clear Urine pH 6.0 (5-9) Ur Specific [place] 1.016 (1.010-1.030) Urine Protein Negative (Negative) Urine Ketones Negative (Negative) Urine Blood Negative (Negative) Urine Nitrate Negative (Negative) Urine Bilirubin Negative (Negative) Urine Urobilinogen Negative (Negative) Ur Leukocyte Esterase Negative (Negative) Urine Glucose Negative (Negative) Blood Type A Negative Antibody Screen Negative Result Diagrams: 04/21/18 14:40 04/21/18 14:40 Lab Statement: Any lab studies that have been ordered have been reviewed, and results considered in the medical decision making process. - CT A/P CT Interpretation Completed By: Radiologist - 1. SMALL NONOBSTRUCTING LEFT RENAL CALCULUS. 2. SMALL RIGHT ADRENAL NODULES, UNCHANGED FAVORING BENIGN ADENOMAS. ED Physician has reviewed this report. - Additional Comments Diagnostic Additional Comments: A Testicular US reveals, as per radiologist: NO TESTICULAR PARENCHYMAL MASS. NO SONOGRAPHIC FEATURES OF TORSION. PLEASE NOTE THAT PARTIAL OR INTERMITTENT TORSION MAY BE SONOGRAPHICALLY NORMAL. ED Physician has reviewed this report. GIGU Course/Dx - Course Course Of Treatment: 52 year old M BIBA to [facility] with a chief complaint of sudden R testicular pain for the past hour after sanding his deck. Pain is 10/ 10 in severity. Denies abdominal pain. Pt has hx of testicular torsion with similar symptoms. A testicular US reveals no acute findings. CT A/P reveals non -acute incidental findings. Bloodwork and UA is unremarkable. Patient is given Morphine, Reglan, and Toradol. While in ED pain is resolved. Patient is discharged. - Diagnoses Differential Diagnoses - Male: Testicular Torsion, Ureteral Calculi, Urinary Tract Infection Provider Diagnoses: Scrotal pain Discharge - Sign-Out/Discharge Documenting (check all that apply): Discharge/Admit/Transfer - Discharge Plan Condition: Stable Disposition: HOME Patient Education Materials: Scrotal Pain (ED) Referrals: [facility] REFERRAL [Outside] - 3 Days (Contact the [facility] Physician referral to find and follow up with a primary care provider) - Billing Disposition and Condition Condition: STABLE Disposition: HOME The documentation as recorded by the Kalpana stone Julia accurately reflects the service I personally performed and the decisions made by , Nicolas Burton.
== END 2018-04-21 17:11 | disposition home or self-care (01) ==
LOC: ED 13:25
DX: N50.82 Scrotal pain (principal); N20.0 Calculus of kidney; E27.8 Other specified disorders of adrenal gland; Z87.891 Personal history of nicotine dependence; Z88.8 Allergy status to other drugs, medicaments and biological substances
CPT/HCPCS: 36415; 74176; 76870; 80053; 81003; 83690; 85025; 85610; 85730; 86850; 86900; 86901; 96361; 96374; 96375; 99283; J1885; J2270; J2765

== ENCOUNTER 2018-06-17 09:19 | Emergency (ER) | payer OTHER ==
--- NOTE | 2018-06-17 09:25 | ED ---
GI/ HPI - HPI Summary HPI Summary: This is scribe Ed Shy documenting for attending Bigg Kinney MD. - History of Current Complaint Chief Complaint: EDFlankPain Stated Complaint: RT FLANK PAIN Pain Intensity: 8 - Allergy/Home Medications Allergies/Adverse Reactions: Allergies Allergy/AdvReac Type Severity Reaction Status Date / Time bupropion Allergy Unknown Verified 06/17/18 09:23 Reaction Details escitalopram [From Lexapro] Allergy See Comment Verified 06/17/18 09:23 trazodone Allergy See Comment Verified 06/17/18 09:23 apples Allergy Unknown Uncoded 03/18/18 17:06 Reaction Details PMH/Surg Hx/FS Hx/Imm Hx Previously Healthy: No Endocrine/Hematology History: Denies: Hx Anticoagulant Therapy, Hx Diabetes Cardiovascular History: Reports: Hx Hypertension GI History: Reports: Hx Diverticulosis History: Denies: Hx Renal Disease Psychiatric History: Reports: Hx Depression, Hx Post Traumatic Stress Disorder - Surgical History Surgery Procedure, Year, and Place: APPY Infectious Disease History: No Infectious Disease History: Denies: Traveled Outside the [place] in Last 30 Days - Family History Known Family History: Positive: Cardiac Disease - Social History Alcohol Use: None Hx Substance Use: No Substance Use Type: Reports: None Hx Tobacco Use: Yes Smoking Status (MU): Former Smoker Amount Used/How Often: 1/2 ppd Review of Systems Negative: Fever, Chills Negative: Erythema Negative: Sore Throat Negative: Chest Pain Negative: Shortness Of Breath, Cough Negative: Abdominal Pain, Vomiting, Nausea Negative: dysuria, hematuria Negative: Myalgia, Edema Negative: Rash Neurological: Other - no dizziness All Other Systems Reviewed And Are Negative: Yes Physical Exam - Summary Physical Exam Summary: Constitutional: Well-developed, Well-nourished, Alert. (-) Distressed Skin: Warm, Dry HENT: Normocephalic; Atraumatic Eyes: Conjunctiva normal Neck: Musculoskeletal ROM normal neck. (-) JVD, (-) Stridor, (-) Tracheal deviation Cardio: Rhythm regular, rate normal, Heart sounds normal; Intact distal pulses; The pedal pulses are 2+ and symmetric. Radial pulses are 2+ and symmetric. (-) Murmur Pulmonary/Chest wall: Effort normal. (-) Respiratory distress, (-) Wheezes, (-) Rales Abd: Soft, (-), epigastric tenderness, (-) Distension, (-) Guarding, (-) Rebound Musculoskeletal: (-) Edema Lymph: (-) Cervical adenopathy Neuro: Alert, Oriented x3 Psych: Mood and affect Normal Triage Information Reviewed: Yes Vital Signs On Initial Exam: Initial Vitals Temp Pulse Resp BP Pulse Ox 98.4 F 68 18 144/73 98 06/17/18 09:20 06/17/18 09:20 06/17/18 09:20 06/17/18 09:20 06/17/18 09:20 Vital Signs Reviewed: Yes Diagnostics - Vital Signs Vital Signs Temp Pulse Resp BP Pulse Ox 06/17/18 09:20 98.4 F 68 18 144/73 98 - Laboratory Lab Statement: Any lab studies that have been ordered have been reviewed, and results considered in the medical decision making process. Discharge - Discharge Plan Referrals: No Primary Care Phys,NOPCP [Primary Care Provider] -
[2018-06-17] MEDS ORDERED: Morphine VIAL* 4 MG/ML VIAL (1 ml vial) IV ONE ×2 (09:46→11:18)
[2018-06-17] MEDS ORDERED: Ketorolac INJ* 30 MG/ML 1 ML VIAL IV PUSH ONE (09:46)
[2018-06-17] MEDS ORDERED: NS 0.9% 1000 ML* 1,000 ML IV ONE (09:46)
[2018-06-17] MEDS ORDERED: Morphine VIAL* 10 MG/ML 1 ML VIAL ONE (09:54)
[2018-06-17] MEDS: Morphine VIAL* 10 MG/ML 1 ML VIAL IV ONE ×2 (09:55→11:33)
--- NOTE | 2018-06-17 09:57 | ED ---
GI/ HPI - HPI Summary HPI Summary: Patient is a 53-year-old male who presents emergency department for right-sided flank pain that started acutely this a.m. Associated symptoms of nausea and urinary hesitancy. Denies vomiting, fever, chest pain, shortness of breath, dysuria, abdominal pain, fever. Patient states he's passed kidney stones the past and symptoms feel similar. Denies any injuries. Pain is constant and sharp in nature. Patient states he has always passed stones and has never needed lithotripsy or stent placed. Pt. denies injury. Pain does not radiate. Symptoms are moderate in severity. No current modifying factors. - History of Current Complaint Chief Complaint: EDFlankPain Time Seen by Provider: 06/17/18 09:43 Stated Complaint: RT FLANK PAIN Hx Obtained From: Patient Pain Intensity: 8 - Allergy/Home Medications Allergies/Adverse Reactions: Allergies Allergy/AdvReac Type Severity Reaction Status Date / Time bupropion Allergy Unknown Verified 06/17/18 09:23 Reaction Details escitalopram [From Lexapro] Allergy See Comment Verified 06/17/18 09:23 trazodone Allergy See Comment Verified 06/17/18 09:23 apples Allergy Unknown Uncoded 03/18/18 17:06 Reaction Details Home Medications: Home Medications Aspirin EC TAB* [Ecotrin EC Low Dose 81 MG*] 81 mg PO DAILY 06/17/18 [History Confirmed 06/17/18] Atorvastatin* [Lipitor*] 10 mg PO DAILY 06/17/18 [History Confirmed 06/17/18] Gabapentin CAP(*) [Neurontin 400 mg CAP(*)] 800 mg PO TID 06/17/18 [History Confirmed 06/17/18] Lisinopril TAB* [Prinivil TAB*] 20 mg PO DAILY 06/17/18 [History Confirmed 06/17] Multivitamins/Minerals TAB* [Theragran/minerals TAB*] 1 tab PO DAILY 06/17/18 [ History Confirmed 06/17/18] PMH/Surg Hx/FS Hx/Imm Hx Previously Healthy: Yes Endocrine/Hematology History: Denies: Hx Anticoagulant Therapy, Hx Diabetes Cardiovascular History: Reports: Hx Hypertension GI History: Reports: Hx Diverticulosis History: Denies: Hx Renal Disease Psychiatric History: Reports: Hx Depression, Hx Post Traumatic Stress Disorder - Surgical History Surgery Procedure, Year, and Place: APPY Infectious Disease History: No Infectious Disease History: Denies: Traveled Outside the [place] in Last 30 Days - Family History Known Family History: Positive: Cardiac Disease - Social History Occupation: Unemployed Lives: Alone Alcohol Use: None Hx Substance Use: No Substance Use Type: Reports: None Hx Tobacco Use: Yes Smoking Status (MU): Former Smoker Amount Used/How Often: 1/2 ppd Review of Systems Constitutional: Negative Negative: Fever, Chills Cardiovascular: Negative Negative: Chest Pain Respiratory: Negative Negative: Shortness Of Breath Positive: Nausea. Negative: Abdominal Pain, Vomiting Positive: flank pain, other - urinary hesitancy All Other Systems Reviewed And Are Negative: Yes Physical Exam Triage Information Reviewed: Yes Vital Signs On Initial Exam: Initial Vitals Temp Pulse Resp BP Pulse Ox 98.4 F 68 18 144/73 98 06/17/18 09:20 06/17/18 09:20 06/17/18 09:20 06/17/18 09:20 06/17/18 09:20 Vital Signs Reviewed: Yes Appearance: Positive: Pain Distress - Patient lying in bed on his left side, grimacing in pain. Nontoxic. Exam is limited secondary to patient's pain. Skin: Positive: Warm, Dry - No vesicular rash Head/Face: Positive: Normal Head/Face Inspection Eyes: Positive: Normal Neck: Positive: Supple Abdomen Description: Positive: Nontender, Soft, Other: - Significant pain to the right CVA with light touch. Neurological: Positive: Normal, CN Intact II-III Psychiatric: Positive: Affect/Mood Appropriate Diagnostics - Vital Signs Vital Signs Temp Pulse Resp BP Pulse Ox 06/17/18 09:20 98.4 F 68 18 144/73 98 - Laboratory Result Diagrams: 06/17/18 10:07 06/17/18 10:07 Lab Statement: Any lab studies that have been ordered have been reviewed, and results considered in the medical decision making process. GIGU Course/Dx - Course Course Of Treatment: Patient presenting with flank pain and a history of kidney stones. IV was placed by EMS. Pain medicine and fluids ordered. Labs ordered. Patient has had numerous CT scans on the past one year. Previous CAT scans showed stones less than 1 mm. Will obtain an kidney ultrasound to evaluate for hydronephrosis. 1115: On re-exam pt. is still grimacing in pain. He states medication helped a little and then wore off. Labs are unremarkable. UA negative for infection or blood. U/S is negative for hydro or acute findings , reading per radiology. Pt. was re-examined and he now has diffuse abd. pain and significant pain to the RUQ. Will obtain GB u/s and CT scan. Another 4mg of morphine ordered. CT scan is negative for acute findings, per radiology. GB u/ s is negative for acute findings, per radiology. On re-exam pt. is resting more comfortably. He is relieved imaging is negative. Suspect pain is muscular in nature given all test are negative. Will rx a few days of pain medication. Pt. states he has a muscle relaxer at home to take. Advised warm compress. To call PCP tomorrow to schedule a close f.u apt. To return to ER if sxs change or worsen. Pt. understands and agrees with plan. - Diagnoses Differential Diagnoses - Male: Cholecystitis, Cholelithiasis, Pyelonephritis, Renal Calculi, Renal Colic, Ureteral Calculi, Urinary Tract Infection Provider Diagnoses: Flank pain, Muscle strain Discharge - Sign-Out/Discharge Documenting (check all that apply): Patient Departure - Discharge Plan Condition: Good Disposition: HOME Prescriptions: Hydrocodone/Acetaminophen [Hydrocodone-Acetamin 5-325 mg] 1 each PO Q6H #12 tablet MDD 4tablets Naproxen [Naproxen 500 mg tab] 500 mg PO Q12H #20 tablet Patient Education Materials: Flank Pain (ED), Back Pain (ED) Referrals: No Primary Care Phys,NOPCP [Medical Doctor] - Additional Instructions: Follow up with your doctor next week as scheduled Take medication as directed Apply warm compresses to back Avoid heavy lifting Return to ER if symptoms change or worsen - Billing Disposition and Condition Condition: GOOD Disposition: Home
[2018-06-17 10:26] LABS: ABS Basophils 0 10^3/ul (0-0.2); ABS Eosinophils 0.1 10^3/ul (0-0.6); ABS Lymphocytes 2.4 10^3/ul (1.0-4.8); ABS Monocytes 0.6 10^3/ul (0-0.8); ABS Neutrophils 3.8 10^3/ul (1.5-7.7); ABS Nucleated RBC 0 10^3/ul; Eosinophil % 0.7 % (0-6); Hematocrit 42 % (42-52); Hemoglobin 14.5 g/dl (14.0-18.0); Lymphocyte % 35.2 % (25-47); Mean Corpuscular HGB Conc 34 g/dl (31-36); Mean Corpuscular Hemoglobin 31 pg (27-31); Mean Corpuscular Volume 91 fL (80-94); Mean Platelet Volume 8.9 um3 (7.4-10.4); Nucleated Red Blood Cells % 0; Platelet Count 210 10^3/ul (150-450); Red Blood Count 4.63 10^6/ul (4.00-5.40); Red Cell Distribution Width 13 % (10.5-15); White Blood Count 6.9 10^3/ul (3.5-10.8)
[2018-06-17 10:36] LABS: Urine Appearance Clear; Urine Blood Negative (Negative); Urine Color Yellow; Urine Ketones Negative (Negative); Urine Protein Negative (Negative); Urine Specific Gravity 1.005 (1.010-1.030); Urine Urobilinogen Negative (Negative)
--- NOTE | 2018-06-17 10:39 | RAD ---
INDICATION: Flank pain. COMPARISON: Correlation is made with a prior CT of the abdomen and pelvis from April 21, 2018. TECHNIQUE: Multiple real-time images of the kidneys were obtained. FINDINGS: The kidneys are normal in size and shape. The right kidney measured 11.7 x 6.4 x 5.6 cm and the left kidney measured 10.5 x 5.9 x 4.8 cm. No significant focal abnormality or hydronephrosis is seen. IMPRESSION: NEGATIVE EXAM, NO EVIDENCE FOR HYDRONEPHROSIS.
[2018-06-17 10:55] LABS: EGFR Non-African American 84.6 (>60)
[2018-06-17] MEDS ORDERED: Iohexol 300* (CONTRAST) 10 ML SDV IV ONE (11:40)
--- NOTE | 2018-06-17 12:15 | RAD ---
HISTORY: RUQ pain COMPARISONS: CT dated April 21, 2018, ultrasound dated June 17, 2016 at 10:15 AM TECHNIQUE: Multiple transverse and longitudinal ultrasound images were obtained of the right upper quadrant of the abdomen using grayscale and color Doppler imaging. FINDINGS: The study is limited by patient bowel gas. LIVER: The liver is normal in shape, size, contour, and echogenicity. There are no focal parenchymal masses. There is normal hepatopedal flow of the portal vein on Doppler imaging. BILIARY TREE: There is no intrahepatic or extrahepatic biliary dilatation. The common duct measures 0.6 cm. GALLBLADDER: The gallbladder is well-visualized. There is no cholelithiasis, gallbladder wall thickening, pericholecystic fluid, or sonographic George sign. PANCREAS: The pancreas is obscured by overlying bowel gas. RIGHT KIDNEY: Please refer to the ultrasound dated June 17, 2018 at 10:15 AM AORTA AND IVC: The visualized aorta and IVC are unremarkable. FLUID: There are no pleural effusions. There is no free fluid within the hepatorenal recess. OTHER FINDINGS: None. IMPRESSION: LIMITED STUDY. NO ACUTE SONOGRAPHIC PATHOLOGY VISUALIZED PORTION OF THE ABDOMEN.
--- NOTE | 2018-06-17 14:46 | RAD ---
CLINICAL HISTORY: diffuse pain COMPARISON: April 21, 2018 TECHNIQUE: Multiple contiguous axial CT scans were obtained of the abdomen and pelvis after the administration of intravenous contrast. Coronal and sagittal multiplanar reformations are submitted for review. Oral contrast was administered. Delayed images were obtained through the abdomen. FINDINGS: LUNG BASES: The lung bases are clear. LIVER: The liver is diffusely low in attenuation compared to the spleen. There are no focal hepatic parenchymal masses. BILE DUCTS: There is no intrahepatic or extrahepatic biliary dilatation. GALLBLADDER: The gallbladder is normal, without pericholecystic inflammatory change. PANCREAS: The pancreas is normal, without mass or ductal dilatation. SPLEEN: Normal in size and appearance. UPPER GI TRACT: Evaluation of the gastrointestinal tract is limited by incomplete gastric distention. The upper GI tract is unremarkable. SMALL BOWEL AND MESENTERY: The small bowel is normal in contour, course, and caliber. There is no obstruction or dilatation. COLON: There are multiple diverticula of the sigmoid colon. There is no pericolonic inflammatory change. ADRENALS: Normal bilaterally. KIDNEYS: The kidneys are normal in shape, size, contour, and axis. There is no hydronephrosis or nephrolithiasis. BLADDER: The bladder is incompletely distended but is grossly normal. PELVIC ORGANS: The prostate gland is normal. The seminal vesicles are symmetric. AORTA: There is calcific atherosclerotic disease of the abdominal aorta and its branches, without aneurysmal dilatation IVC: Unremarkable LYMPH NODES: There is no lymphadenopathy by size criteria. ABDOMINAL WALL: There is no evidence for abdominal wall hernia. BONES AND SOFT TISSUES: There is transitional last lumbar type vertebral body. 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 OTHER: None IMPRESSION: FATTY LIVER. DIVERTICULOSIS.
[2018-06-17 15:27] VITALS: BP 140/81
== END 2018-06-17 15:25 | disposition home or self-care (01) ==
LOC: ED 09:19
DX: R10.11 Right upper quadrant pain (principal); R10.84 Generalized abdominal pain; S39.011A Strain of muscle, fascia and tendon of abdomen, initial encounter; X58.XXXA Exposure to other specified factors, initial encounter; Y93.9 Activity, unspecified; Y92.9 Unspecified place or not applicable; K76.0 Fatty (change of) liver, not elsewhere classified; K57.30 Diverticulosis of large intestine without perforation or abscess without bleeding; R11.0 Nausea; R39.11 Hesitancy of micturition; I10 Essential (primary) hypertension; Z79.82 Long term (current) use of aspirin; Z87.442 Personal history of urinary calculi; Z88.8 Allergy status to other drugs, medicaments and biological substances; Z91.018 Allergy to other foods; Z82.49 Family history of ischemic heart disease and other diseases of the circulatory system; Z87.891 Personal history of nicotine dependence
CPT/HCPCS: 36415; 74177; 76705; 76775; 80053; 81003; 85025; 96374; 96375; 99283; J1885; J2270; Q9967

== ENCOUNTER 2018-07-26 15:49 | Emergency (ER) | payer OTHER ==
--- NOTE | 2018-07-26 17:10 | ED ---
Throat Pain/Nasal Congestion - HPI Summary HPI Summary: 53-year-old male presents with dental pain for the past couple hours. He states it is his left upper tooth. He states that he has had all of his other wisdom teeth removed except for that one. He states it feels similar to when he had impacted wisdom teeth. He notices swelling to his left-sided face. No pain with eye movement. No swelling around his eyes. He denies any fevers. No chills. No chest pain or shortness breath. No difficulty swallowing. Has history of high blood pressure. He states the pain is a 10 out of 10. [facility]. - History of Current Complaint Chief Complaint: EDDentalPain Time Seen by Provider: 07/26/18 17:07 - Allergies/Home Medications Allergies/Adverse Reactions: Allergies Allergy/AdvReac Type Severity Reaction Status Date / Time bupropion Allergy Unknown Verified 07/26/18 16:02 Reaction Details escitalopram [From Lexapro] Allergy See Comment Verified 07/26/18 16:02 trazodone Allergy See Comment Verified 07/26/18 16:02 apples Allergy Unknown Uncoded 07/26/18 16:02 Reaction Details PMH/Surg Hx/FS Hx/Imm Hx Endocrine/Hematology History: Denies: Hx Anticoagulant Therapy, Hx Diabetes Cardiovascular History: Reports: Hx Hypertension GI History: Reports: Hx Diverticulosis History: Denies: Hx Renal Disease Psychiatric History: Reports: Hx Depression, Hx Post Traumatic Stress Disorder - Surgical History Surgery Procedure, Year, and Place: APPY Infectious Disease History: No Infectious Disease History: Denies: Traveled Outside the [place] in Last 30 Days - Family History Known Family History: Positive: Cardiac Disease - Social History Alcohol Use: None Hx Substance Use: No Substance Use Type: Reports: None Hx Tobacco Use: Yes Smoking Status (MU): Former Smoker Amount Used/How Often: 1/2 ppd Review of Systems Negative: Fever Positive: Dental Pain Negative: Chest Pain Negative: Shortness Of Breath All Other Systems Reviewed And Are Negative: Yes Physical Exam Triage Information Reviewed: Yes Vital Signs On Initial Exam: Initial Vitals Temp Pulse Resp BP Pulse Ox 99.3 F 79 16 147/95 97 07/26/18 16:00 07/26/18 16:00 07/26/18 16:00 07/26/18 16:00 07/26/18 16:00 Vital Signs Reviewed: Yes Appearance: Positive: Well-Appearing Skin: Positive: Warm, Dry Head/Face: Positive: Normal Head/Face Inspection Eyes: Positive: Normal, EOMI, YU, Conjunctiva Clear ENT: Positive: Pharynx normal Dental: Positive: Percussion Tenderness @ - 16. Negative: Abscess @ Respiratory/Lung Sounds: Positive: Clear to Auscultation, Breath Sounds Present Cardiovascular: Positive: Normal, RRR Musculoskeletal: Positive: Normal Neurological: Positive: Normal Psychiatric: Positive: Normal Diagnostics - Vital Signs Vital Signs Temp Pulse Resp BP Pulse Ox 07/26/18 16:00 99.3 F 79 16 147/95 97 - Laboratory Lab Statement: Any lab studies that have been ordered have been reviewed, and results considered in the medical decision making process. EENT Course/Dx - Course Course Of Treatment: 53-year-old male presents with dental pain for the past couple hours. He states it is his left upper tooth. He states that he has had all of his other wisdom teeth removed except for that one. He states it feels similar to when he had impacted wisdom teeth. He notices swelling to his left- sided face. No pain with eye movement. No swelling around his eyes. He denies any fevers. No chills. No chest pain or shortness breath. No difficulty swallowing. Has history of high blood pressure. He states the pain is a 10 out of 10. [facility]. On exam has tenderness tooth 16. No abscess felt. Lungs clear to auscultation. Will give penicillin and pain medication. Patient understands agrees the plan. - Differential Diagnoses Differential Diagnoses: Dental Abscess, Dental Caries, Fractured Tooth - Diagnoses Provider Diagnoses: Dental infection Discharge - Sign-Out/Discharge Documenting (check all that apply): Patient Departure - Discharge Plan Condition: Good Disposition: HOME Prescriptions: Hydrocodone/Acetaminophen [Hydrocodone-Acetamin 5-325 mg] 1 each PO Q6H #12 tablet MDD 4tablets Penicillin VK TAB* [Penicillin VK 250 mg Tab*] 250 mg PO QID #28 tab Patient Education Materials: Toothache (ED) Referrals: Hunter Granger MD [Primary Care Provider] - Additional Instructions: Take antibiotics: 4 times a day for 7 days Use ibuprofen every 6 hours and narcotic for break through pain every 6 hours Avoid hard, crunchy food until seen by dentist Follow up with dentist as soon as possible Return to ED if develop fever, shortness of breath, pain with eye movement or swelling around eye - Billing Disposition and Condition Condition: GOOD Disposition: Home Images - Images Dental: 1 - pain
[2018-07-26 17:14] VITALS: BP 170/95
== END 2018-07-26 17:21 | disposition home or self-care (01) ==
LOC: ED 15:49
DX: K04.7 Periapical abscess without sinus (principal); K08.89 Other specified disorders of teeth and supporting structures; Z87.891 Personal history of nicotine dependence
CPT/HCPCS: 99281

== ENCOUNTER → 2018-10-30 18:23 | Emergency (ER) | payer OTHER ==
[~2018-10-30 18:23] MED LIST: HYDROmorphone INJ1* 1 MG/ML SYRINGE IV SLOW PU ONE; Ketorolac INJ* 30 MG/ML 1 ML VIAL IV PUSH ONE; Ondansetron INJ* 2 MG/ML VIAL IV ONE
--- NOTE | 2018-10-30 19:25 | ED ---
Abdominal Pain/Male - HPI Summary HPI Summary: A 53 y/o male brought in by [facility] ambulance presents to [facility] with a chief complaint of abd pain since the afternoon of 10/29/18. The patient reports dysuria, right flank pain and also reports that he has difficulty when starting to urinate. He also claims that that he has not been sexually active in months. He reports right lower back pain. The patient has a Hx of kidney stones. He rates his pain as a 7/10. - History of Current Complaint Chief Complaint: EDFlankPain Stated Complaint: POSS KIDNEY STONE Time Seen by Provider: 10/30/18 18:51 Hx Obtained From: Patient, EMS Onset/Duration: Sudden Onset, Lasting Hours, Still Present Timing: Constant Severity Initially: Moderate Severity Currently: Moderate Pain Intensity: 7 Pain Scale Used: 0-10 Numeric Location: Discrete At: RLQ, Flank Radiates: Yes Radiates to: Back Associated Signs And Symptoms: Positive: Back Pain, Urinary Symptoms - Allergies/Home Medications Allergies/Adverse Reactions: Allergies Allergy/AdvReac Type Severity Reaction Status Date / Time bupropion Allergy Unknown Verified 10/30/18 18:32 Reaction Details escitalopram [From Lexapro] Allergy See Comment Verified 10/30/18 18:32 trazodone Allergy See Comment Verified 10/30/18 18:32 apples Allergy Unknown Uncoded 10/30/18 18:32 Reaction Details PMH/Surg Hx/FS Hx/Imm Hx Endocrine/Hematology History: Denies: Hx Anticoagulant Therapy, Hx Diabetes Cardiovascular History: Reports: Hx Hypertension GI History: Reports: Hx Diverticulosis History: Denies: Hx Renal Disease Psychiatric History: Reports: Hx Depression, Hx Post Traumatic Stress Disorder - Surgical History Surgery Procedure, Year, and Place: APPY Infectious Disease History: No Infectious Disease History: Denies: Traveled Outside the [place] in Last 30 Days - Family History Known Family History: Positive: Cardiac Disease - Social History Alcohol Use: None Hx Substance Use: No Substance Use Type: Reports: None Hx Tobacco Use: Yes Smoking Status (MU): Former Smoker Amount Used/How Often: 1/2 ppd Review of Systems Negative: Fever Positive: Abdominal Pain Positive: dysuria, flank pain Positive: Myalgia - lower right back pain All Other Systems Reviewed And Are Negative: Yes Physical Exam - Summary Physical Exam Summary: Appearance: The patient is well-nourished in moderate distress. Skin: The skin is warm and dry and skin color reflects adequate perfusion. HEENT: The head is normocephalic and atraumatic. The pupils are equal and reactive. The conjunctivae are clear and without drainage. Nares are patent and without drainage. Mouth reveals moist mucous membranes and the throat is without erythema and exudate. The external ears are intact. The ear canals are patent and without drainage. The tympanic membranes are intact. Neck: The neck is supple with full range of motion and non-tender. There are no carotid bruits. There is no neck vein distension. Respiratory: Chest is non-tender. Lungs are clear to auscultation and breath sounds are symmetrical and equal. Cardiovascular: Heart is regular rate and rhythm. There is no murmur or rub auscultated. There is no peripheral edema and pulses are symmetrical and equal. Abdomen: Tender in RLQ. There are normal bowel sounds heard in all four quadrants and there is no organomegaly palpated. Musculoskeletal: There is no back tenderness noted. Extremities are non-tender with full range of motion. There is good capillary refill. There is no peripheral edema or calf tenderness elicited. Neurological: Patient is alert and oriented to person, place and time. The patient has symmetrical motor strength in all four extremities. Cranial nerves are grossly intact. Deep tendon reflexes are symmetrical and equal in all four extremities. Psychiatric: The patient has an appropriate affect and does not exhibit any anxiety or depression. Triage Information Reviewed: Yes Vital Signs On Initial Exam: Initial Vitals Temp Pulse Resp BP Pulse Ox 98.1 F 73 24 214/104 99 10/30/18 18:30 10/30/18 18:30 10/30/18 18:30 10/30/18 18:30 10/30/18 18:30 Vital Signs Reviewed: Yes Diagnostics - Vital Signs Vital Signs Temp Pulse Resp BP Pulse Ox 10/30/18 18:30 98.1 F 73 24 214/104 99 - Laboratory Result Diagrams: 10/30/18 19:24 10/30/18 19:24 Lab Statement: Any lab studies that have been ordered have been reviewed, and results considered in the medical decision making process. - CT abdomen/pelvis CT Interpretation Completed By: Radiologist Summary of CT Findings: No renal stones or obstructive uropathy. Moderate constipation. Sigmoid diverticula without diverticulitis. ED physician has reviewed this imaging report. Re-Evaluation - Re-Evaluation First Eval Re-Evaluation Time: 20:30 Change: Unchanged Comment: Pt still feels the same. Abdominal Pain Fem Course/Dx - Course Course Of Treatment: Mr. Cordon presented to the emergency department complaining of right flank pain. He has presented this way in the past and professes to have kidney stones although I cannot find any evidence from CT scans in the past that he was ever diagnosed with ureteral stones. He was diagnosed with diverticulitis once. He is writhing about on arrival although his vital signs are stable. He screams in pain when I lightly brush his right lower quadrant with one finger. An IVs initiated on arrival and he is given IV Toradol and Zofran while CT is obtained. The CT and labs are unremarkable and his vitals continued to be unremarkable. He continues to scream in pain and is given IV Dilaudid. He then leaves the department without announcing his intentions. - Diagnoses Provider Diagnoses: Flank pain Discharge - Sign-Out/Discharge Documenting (check all that apply): Patient Departure - left without notice - Discharge Plan Condition: Fair Disposition: ELOPEMENT Referrals: Hunter Gragner MD [Primary Care Provider] - - Billing Disposition and Condition Condition: FAIR Disposition: Elopement - Attestation Statements Document Initiated by Scribe: Yes Documenting Scribe: Micheal Dickey Provider For Whom Mary Ellen is Documenting (Include Credential): Bigg Kinney MD Scribe Attestation: I, Micheal Dickey, scribed for Bigg Kinney MD on 10/30/18 at 2144. Scribe Documentation Reviewed: Yes Provider Attestation: The documentation as recorded by the Micheal stone accurately reflects the service I personally performed and the decisions made by me, Bigg Kinney MD Status of Scribe Document: Viewed
[2018-10-30 19:37] LABS: ABS Basophils 0 10^3/ul (0-0.2); ABS Eosinophils 0.1 10^3/ul (0-0.6); ABS Lymphocytes 3.1 10^3/ul (1.0-4.8); ABS Monocytes 0.7 10^3/ul (0-0.8); ABS Neutrophils 4.2 10^3/ul (1.5-7.7); ABS Nucleated RBC 0 10^3/ul; Eosinophil % 0.9 %; Hematocrit 41 % (42-52); Hemoglobin 13.8 g/dl (14.0-18.0); Lymphocyte % 38.5 %; Mean Corpuscular HGB Conc 34 g/dl (31-36); Mean Corpuscular Hemoglobin 31 pg (27-31); Mean Corpuscular Volume 91 fL (80-94); Mean Platelet Volume 8.4 fL (7.4-10.4); Nucleated Red Blood Cells % 0; Platelet Count 235 10^3/ul (150-450); Red Blood Count 4.48 10^6/ul (4.00-5.40); Red Cell Distribution Width 13 % (10.5-15); White Blood Count 8.1 10^3/ul (3.5-10.8)
[2018-10-30 19:47] LABS: EGFR Non-African American 79.7 (>60)
[2018-10-30 19:51] LABS: Urine Appearance Clear; Urine Blood Negative (Negative); Urine Color Straw; Urine Ketones Negative (Negative); Urine Protein Negative (Negative); Urine Specific Gravity 1.004 (1.010-1.030); Urine Urobilinogen Negative (Negative)
[2018-10-30 21:45] VITALS: BP 00/00
== END | disposition home or self-care (01) ==
LOC: ED 18:23
DX: R10.9 Unspecified abdominal pain (principal); I10 Essential (primary) hypertension; F43.10 Post-traumatic stress disorder, unspecified; F32.9 Major depressive disorder, single episode, unspecified; Z87.891 Personal history of nicotine dependence; Z53.21 Procedure and treatment not carried out due to patient leaving prior to being seen by health care provider
CPT/HCPCS: 36415; 74176; 80053; 81003; 82550; 83690; 85025; 96374; 96375; 99283; J1170; J1885; J2405

== ENCOUNTER 2019-03-19 11:57 | Emergency (ER) | payer OTHER ==
[2019-03-19] MEDS ORDERED: Bupivacaine 0.25% SDV* 30 ML INJ ONE (12:10)
[2019-03-19] MEDS ORDERED: Ketorolac INJ* 60 MG/2 ML VIAL IM ONE (12:11)
[2019-03-19] MEDS ORDERED: Dexamethasone IV* 4 MG/ML 1 ML (4 MG) IM ONE (12:11)
[2019-03-19] MEDS ORDERED: Cyclobenzaprine TAB* 10 MG PO ONE (12:55)
[2019-03-19 13:51] VITALS: BP 165/108
--- NOTE | 2019-03-19 13:58 | ED ---
Back Pain - HPI Summary HPI Summary: Patient is a 53-year-old male presenting to the ED with severe left-sided low back pain which is nonradiating. Denies any numbness or tingling. Denies any radiation of pain down the leg or to the spine. No pain directly over the spine. He states he's had this in the past and states this is a "muscle spasm. " He currently takes tizanidine at bedtime for sleep, but takes no other medications during the day. Symptoms began this morning upon awakening. He denies any trauma or injury. He denies any bladder or bowel dysfunction. Pain is currently rated at 10/10 in severity, aching and stabbing. - History of Current Complaint Chief Complaint: EDBackInjuryPain Stated Complaint: BACK PAIN PER EMS Time Seen by Provider: 03/19/19 11:58 Hx Obtained From: Patient Onset/Duration: Sudden Onset Onset/Duration: Started Hours Ago Timing: Constant Back Pain Location: Is Discrete @ - left sided low back pain Severity Initially: Moderate Severity Currently: Moderate Pain Intensity: 4 Pain Scale Used: 0-10 Numeric Character: Aching Aggravating Symptom(s): Movement, Lifting, Bending Alleviating Symptom(s): Rest, Position Associated Signs And Symptoms: Negative: Swelling, Redness, Bruising, Weakness, Numbness, Abdominal Pain, Flank Pain, Bladder Incontinence, Bowel Incontinence, Weight Loss, Pain with Weight Bearing - Risk Factors AAA Risk Factors: Negative TAD Risk Factors: Negative Cauda Equina Risk Factors: Negative Epidural Abscess Risk Factors: Negative - Allergies/Home Medications Allergies/Adverse Reactions: Allergies Allergy/AdvReac Type Severity Reaction Status Date / Time bupropion Allergy Unknown Verified 02/03/19 17:22 Reaction Details escitalopram [From Lexapro] Allergy See Comment Verified 02/03/19 17:22 trazodone Allergy See Comment Verified 02/03/19 17:22 apples Allergy Unknown Uncoded 02/03/19 17:22 Reaction Details Home Medications: Home Medications Tizanidine HCl 4 mg PO DAILY 03/19/19 [History Confirmed 03/19/19] hydrOXYzine HCl [Hydroxyzine HCl] 50 mg PO DAILY 03/19/19 [History Confirmed ] PMH/Surg Hx/FS Hx/Imm Hx Previously Healthy: Yes Endocrine/Hematology History: Denies: Hx Anticoagulant Therapy, Hx Diabetes Cardiovascular History: Reports: Hx Hypertension GI History: Reports: Hx Diverticulosis History: Denies: Hx Renal Disease Psychiatric History: Reports: Hx Depression, Hx Post Traumatic Stress Disorder - Surgical History Surgery Procedure, Year, and Place: APPY - Immunization History Hx Pertussis Vaccination: No Immunizations Up to Date: Yes Infectious Disease History: No Infectious Disease History: Denies: Traveled Outside the [place] in Last 30 Days - Family History Known Family History: Positive: Cardiac Disease - Social History Occupation: Employed Full-time Lives: With Family Alcohol Use: None Hx Substance Use: No Substance Use Type: Reports: None Hx Tobacco Use: Yes Smoking Status (MU): Former Smoker Amount Used/How Often: 1/2 ppd Review of Systems Constitutional: Negative Negative: Fever, Chills, Fatigue, Skin Diaphoresis Negative: Palpitations, Chest Pain Negative: Shortness Of Breath, Cough Positive: Arthralgia, Myalgia Skin: Negative Neurological: Negative All Other Systems Reviewed And Are Negative: Yes Physical Exam Triage Information Reviewed: Yes Vital Signs On Initial Exam: Initial Vitals Temp Pulse Resp BP Pulse Ox 98.2 F 78 16 176/91 98 03/19/19 11:57 03/19/19 11:57 03/19/19 11:57 03/19/19 11:57 03/19/19 11:57 Vital Signs Reviewed: Yes Appearance: Positive: Well-Appearing, Well-Nourished Skin: Positive: Warm, Skin Color Reflects Adequate Perfusion Head/Face: Positive: Normal Head/Face Inspection Eyes: Positive: EOMI, Conjunctiva Clear Neck: Positive: Supple, No Lymphadenopathy Respiratory/Lung Sounds: Positive: Clear to Auscultation, Breath Sounds Present Cardiovascular: Positive: Normal, Pulses are Symmetrical in both Upper and Lower Extremities Musculoskeletal: Positive: Pain @ - left sided low back pain Neurological: Positive: Sensory/Motor Intact, Alert, Oriented to Person Place, Time, Speech Normal Psychiatric: Positive: Affect/Mood Appropriate, Anxious AVPU Assessment: Alert Diagnostics - Vital Signs Vital Signs Temp Pulse Resp BP Pulse Ox 03/19/19 13:51 98.3 F 73 20 165/108 99 03/19/19 13:00 75 96 03/19/19 12:43 68 167/89 96 03/19/19 12:05 78 97 03/19/19 11:57 98.2 F 78 16 176/91 98 - Laboratory Lab Statement: Any lab studies that have been ordered have been reviewed, and results considered in the medical decision making process. Back Pain Course/Dx - Course Course Of Treatment: Patient is evaluated for acute left-sided low back pain which is just above the sciatic notch. No pain directly over the spine. On physical examination, there is no pain to palpation of the cervical, thoracic or lumbar spine. No step-off noted. No ecchymosis or swelling or erythema. No rash visualized. Patient denies any numbness or tingling. Denies any bladder or bowel dysfunction. He is given Toradol 60 mg IM, dexamethasone 8mg IM. Discussed with the patient and the treatment options. Also given bupivacaine mixed with lidocaine 10 cc injection diretly over the area of spasm. Patient endorses significant improvement after 10 minutes and is able to stand and ambulate well. Patient is discharged muscle spasms. He will take Toradol, Flexeril and prednisone. He is okay for discharge at this time. - Diagnoses Differential Diagnosis/HQI/PQRI: Positive: Strain, Sprain Provider Diagnoses: Spasm of muscle of lower back Discharge - Sign-Out/Discharge Documenting (check all that apply): Patient Departure Patient Received Moderate/Deep Sedation with Procedure: No - Discharge Plan Condition: Stable Disposition: HOME Prescriptions: Cyclobenzaprine TAB* [Flexeril TAB*] 10 mg PO BID PRN #10 tab MDD 2 PRN Reason: Spasms Ketorolac TAB * [Toradol TAB *] 10 mg PO Q6H #16 tab predniSONE TAB* [Deltasone TAB*] 50 mg PO DAILY #4 tab MDD 1 Patient Education Materials: Muscle Spasm (ED), Lower Back Exercises (ED) Referrals: Kaitlynn Wing EGG SMELLER [Primary Care Provider] - Additional Instructions: Flexeril up to twice daily as needed for muscle spasm, do not take tizanidine within 6 hours of taking Flexeril Prednisone once daily 4 days, start this medication tomorrow morning Do not take the prednisone before bed Toradol 4 times daily 4 days Do not take naproxen, ibuprofen or other NSAIDs while taking the Toradol You may also use Tylenol up to 3-4 times daily for 3-4 days You may take this on opposite schedule of the Toradol Moist heat to the area - Billing Disposition and Condition Condition: STABLE Disposition: Home
== END 2019-03-19 13:51 | disposition home or self-care (01) ==
LOC: ED 11:57
DX: M62.830 Muscle spasm of back (principal); I10 Essential (primary) hypertension; Z87.891 Personal history of nicotine dependence
CPT/HCPCS: 96372; 96374; 99282; A9270-GY; J1100; J1885; J3490

== ENCOUNTER 2019-09-25 16:38 | Emergency (ER) | payer OTHER ==
--- OUTSIDE RECORDS SUMMARY | 2019-09-25 17:11 | XMS REPORT | Summary of Care ---
:1965 Author Organization [facility] Address [address] [facility] [place] [address] Care Team Providers Name Role Phone None, [place] Primary Care Provider Unavailable Reason for Visit Reason Comments Back Pain follow up to mri Encounter Details Date Type Department Care Team Description 08/23/2019 Office Visit Melly Paramore, Spondylolisthesis of lumbosacral region (Primary Dx); Neurosurgery MD Onofre Displacement of intervertebral disc of lumbosacral region [address] [place] [address] [place] [address] [phone] Allergies Active Allergy Reactions Severity Noted Date Comments Trazodone Other 08/23/2019 Suicidal thoughts Bupropion Rash 08/23/2019 documented as of this encounter (statuses as of 08/23/2019) Medications Medication Sig Dispensed Refills Start Date End Date Status LISINOPRIL PO Take 20 mg by 0 Active mouth. GABAPENTIN PO Take 3,600 mg by 0 Active mouth. atorvastatin (LIPITOR) Take 40 mg by 0 Active 40 MG Oral Tab mouth DAILY. TIZANIDINE HCL PO Take by mouth. 0 Active OMEPRAZOLE PO Take by mouth. 0 Active documented as of this encounter (statuses as of 08/23/2019) Active Problems Not on filedocumented as of this encounter (statuses as of 08/23/2019) Social History Tobacco Use Types Packs/Day Years Used Date Never Smoker 0 Smokeless Tobacco: Never Used Sex Assigned at Date Recorded Not on file Job Start Date Occupation Industry Not on file Not on file Not on file Travel History Travel Start Travel End No recent travel history available. documented as of this encounter Last Filed Vital Signs Vital Sign Reading Time Taken Comments Blood Pressure 151/87 08/23/2019 10:45 AM EDT Pulse - - Temperature - - Respiratory Rate - - Oxygen Saturation - - Inhaled Oxygen Concentration - - Weight 88.5 kg (195 lb) 08/23/2019 10:45 AM EDT Height 167.6 cm (5' 6") 08/23/2019 10:45 AM EDT Body Mass Index 31.47 08/23/2019 10:45 AM EDT documented in this encounter Progress Notes Onofre Forbes MD - 08/23/2019 10:10 AM EDT PATIENT: Navdeep Cordon : 1965 DATE OF SERVICE: 08/23/2019 REFERRING PRACTITIONER: Sebastián PRIMARY CARE PROVIDER: None, [place] CHIEF COMPLAINT: Chief Complaint Patient presents with Back Pain follow up to mri HISTORY OF PRESENT ILLNESS: Mr. Cordon returns with MRI scan that suggest a spondylolisthesis of L5 on S1 with mild foraminal narrowing on the left side. I obtained flexion-extension x- rays which do confirm a mobile spondylolisthesis at L5-S1 without pars defects. I suspect this is the cause of the patient's back and left leg pain. He is already failed physical therapy and epidural injections. We discussed surgical treatments and I have recommended posterior minimally invasive interbody fusion at L5-S1. Please see my previous note for full details. Past Medical History: Diagnosis Date Essential (primary) hypertension History reviewed. No pertinent surgical history. History reviewed. No pertinent family history. Social History Socioeconomic History Marital status: Spouse name: Not on file Number of children: Not on file Years of education: Not on file Highest education level: Not on file Occupational History Not on file Social Needs Financial resource strain: Not on file Food insecurity: Worry: Not on file Inability: Not on file Transportation needs: Medical: Not on file Non-medical: Not on file Tobacco Use Smoking status: Never Smoker Smokeless tobacco: Never Used Substance and Sexual Activity Alcohol use: Not on file Drug use: Not on file Sexual activity: Not on file Lifestyle Physical activity: Days per week: Not on file Minutes per session: Not on file Stress: Not on file Relationships Social connections: Talks on phone: Not on file Gets together: Not on file Attends caodaism service: Not on file Active member of club or organization: Not on file Attends meetings of clubs or organizations: Not on file Relationship status: Not on file Intimate partner violence: Fear of current or ex partner: Not on file Emotionally abused: Not on file Physically abused: Not on file Forced sexual activity: Not on file Other Topics Concern Not on file Social History Narrative Not on file Current Outpatient Medications Medication atorvastatin (LIPITOR) 40 MG Oral Tab GABAPENTIN PO LISINOPRIL PO OMEPRAZOLE PO TIZANIDINE HCL PO Allergies Allergen Reactions Trazodone Other Suicidal thoughts Wellbutrin [Bupropion] Rash REVIEW OF SYSTEMS: BP 151/87 | Ht 5' 6" (1.676 m) | Wt 195 lb (88.5 kg) | BMI 31.47 kg/m Body mass index is 31.47 kg/m. Psychological ROS: negative Ophthalmic ROS: negative ENT ROS: negative Hematological and Lymphatic ROS: negative Endocrine ROS: negative Respiratory ROS: no cough, shortness of breath, or wheezing Cardiovascular ROS: no chest pain or dyspnea on exertion Gastrointestinal ROS: no abdominal pain, change in bowel habits, or black or bloody stools Genito-Urinary ROS: negative Musculoskeletal ROS: negative Neurological ROS: negative Physical examination: Lung del castillo were clear Heart exam revealed a regular rate and rhythm The abdomen was soft The neurological examination was unchanged IMPRESSION / PLAN: ICD-9-CM ICD-10-CM 1. Spondylolisthesis of lumbosacral region 738.4 M43.17 2. Displacement of intervertebral disc of lumbosacral region 722.10 M51.27 XR LUMBAR SPINE COMP WITHBENDING VIEWS Medical decision making: Risk of surgery including bleeding, infection and neurological injury up toand including paralysis and loss of bowel and bladder function were discussed with the patient. We will plan to proceed with operation in the coming weeks. Author: Onofre Forbes MD 08/23/2019 12:02 documented in this encounter Plan of Treatment Name Type Priority Associated Diagnoses Date/Time XR LUMBAR SPINE COMP Imaging Routine Displacement of 08/23/2019 11:23 AM WITH BENDING VIEWS intervertebral disc of EDT lumbosacral region Name Type Priority Associated Diagnoses Order Schedule XR LUMBAR SPINE COMP Imaging Routine Displacement of Expected: 08/23/2019, WITH BENDING VIEWS intervertebral disc of Expires: 08/22/2020 lumbosacral region Health Maintenance Due Date Last Done Comments DEPRESSION SCREENING 1979 HIV SCREENING 1982 LIPID DISORDER SCREENING 1985 COLONOSCOPY SCREENING 2017 ZOSTER IMMUNIZATION SERIES (1 of 2) 2017 INFLUENZA VACCINE (#1) 2019 HPV IMMUNIZATION SERIES Aged Out No longer eligible based on patient's age to complete this topic MENINGOCOCCAL VACCINE IMM Aged Out No longer eligible based on patient's age to complete this topic PNEUMOCOCCAL 0-64 YRS Aged Out No longer eligible based on patient's age to complete this topic documented as of this encounter Results Not on filedocumented in this encounter Visit Diagnoses Diagnosis Spondylolisthesis of lumbosacral region - Primary Acquired spondylolisthesis Displacement of intervertebral disc of lumbosacral region documented in this encounter Insurance Payer Benefit Plan / Subscriber ID Effective Phone Address Type Group Dates [employer] xxxxxxxxxx Effective [facility] for all Administration [employer]IANCE ALLIANCE dates documented as of this encounter
--- OUTSIDE RECORDS SUMMARY | 2019-09-25 17:11 | XMS REPORT | Summary of Care ---
:1965 Author Organization [facility] Address [address] [facility] [place] [address] Care Team Providers Name Role Phone None, [place] Primary Care Provider Unavailable Reason for Referral MRI/CAT/PET Scan (Routine) Status Reason Specialty Diagnoses / Procedures Referred By Contact Referred To Contact Closed Diagnoses Lumbar radiculopathy, chronic Paramore, Obey Radiation Monitor Procedures MR LUMBAR SPINE WO CONTRAST MD Onofre [address] [place] [address] [place] [address] Phone: [phone] Reason for Visit MRI/CAT/PET Scan (Routine) Status Reason Specialty Diagnoses / Procedures Referred By Contact Referred To Contact Closed Diagnoses Lumbar radiculopathy, chronic Paramore, Obey Radiation Monitor Procedures MR LUMBAR SPINE WO CONTRAST MD Onofre [address] [place] [address] [place] [address] Phone: [phone] Encounter Details Date Type Department Care Team Description 08/04/2019 Hospital Encounter [facility] 1 [place] [address] Allergies Not on Filedocumented as of this encounter (statuses as of 08/06/2019) Medications Not on filedocumented as of this encounter (statuses as of 08/06/2019) Active Problems Not on filedocumented as of this encounter (statuses as of 08/06/2019) Social History Tobacco Use Types Packs/Day Years Used Date Never Assessed Sex Assigned at Date Recorded Not on file Job Start Date Occupation Industry Not on file Not on file Not on file Travel History Travel Start Travel End No recent travel history available. documented as of this encounter Last Filed Vital Signs Not on filedocumented in this encounter Plan of Treatment Date Type Specialty Care Team Description 08/23/2019 Office Visit Neurosurgery Onofre Forbes MD [address] [place] [address] [phone] Name Type Priority Associated Diagnoses Date/Time MR LUMBAR SPINE WO Imaging Routine Lumbar radiculopathy, 08/04/2019 7:07 AM CONTRAST chronic EDT Name Type Priority Associated Diagnoses Order Schedule MR LUMBAR SPINE WO Imaging Routine Lumbar radiculopathy, 1 Occurrences starting CONTRAST chronic 08/04/2019 until 08/04/2019 Health Maintenance Due Date Last Done Comments [...] filedocumented in this encounter Visit Diagnoses Diagnosis Lumbar radiculopathy, chronic Thoracic or lumbosacral neuritis or radiculitis, unspecified documented in this encounter Insurance Payer Benefit Plan / Subscriber ID Effective Phone Address Type Group Dates [employer] xxxxxxxxxx Effective [facility] for all Administration [employer]IANCE ALLIANCE dates ) [place] [phone] documented as of this encounter
--- OUTSIDE RECORDS SUMMARY | 2019-09-25 17:11 | XMS REPORT | Summary of Care ---
:1965 Author Organization [facility] Address [address] [facility] [place] [address] Care Team Providers Name Role Phone None, Belt Primary Care Provider Unavailable Reason for Visit Auth/Cert Status Reason Specialty Diagnoses / Procedures Referred By Referred To Contact Contact Diagnoses Spondylolisthesis, lumbosacral region Other intervertebral disc displacement, lumbosacral region Procedures LA ARTHRODESIS POSTERIOR INTERBODY LUMBAR LA POSTERIOR NON-SEGMENTAL INSTRUMENTATION LA INSJ BIOMCHN DEV INTERVERTEBRAL DSC SPC W/ARTHRD LA ALLOGRAFT FOR SPINE SURGERY ONLY MORSELIZED LA AUTOGRAFT SPINE SURGERY LOCAL FROM SAME INCISION LA STEREOTACTIC COMP ASSIST PROC,SPINAL Encounter Details Date Type Department Care Team Description 09/14/2019 - Hospital Encounter [facility] 6 [facility] [place], Inpatient 09/15/2019 1 [place] [address] 1 Delmis Huber [phone] [place] [address] Allergies Active Allergy Reactions Severity Noted Date Comments Lexapro MOBILE APPLICATION ARCHITECT Reaction High 09/14/2019 restlessness Trazodone Other 08/23/2019 Suicidal thoughts Bupropion Rash 08/23/2019 documented as of this encounter (statuses as of 09/16/2019) Medications Medication Sig Dispensed Refills Start Date End Date Status LISINOPRIL PO Take 20 mg by 0 Active mouth. GABAPENTIN PO Take 3,600 mg 0 Active by mouth. atorvastatin Take 40 mg by 0 Active (LIPITOR) 40 MG Oral mouth DAILY. Tab TIZANIDINE HCL PO Take by 0 Active mouth. methocarbamol Take 1 Tab by 50 Tab 0 09/15/2019 Active (ROBAXIN) 750 MG mouth THREE Oral Tab TIMES DAILY. OXYcodone-acetaminop Take 1 Tab by 28 Tab 0 09/15/2019 09/22/2019 Active hen (PERCOCET) 5-325 mouth EVERY MG Oral Tab FOUR HOURS NEEDED (pain) for up to 7 days. Max Daily Amount: 6 Tabs. OMEPRAZOLE PO Take by 0 09/13/2019 Discontinued mouth. documented as of this encounter (statuses as of 09/16/2019) Active Problems Problem Noted Date Spondylolisthesis of lumbosacral region 08/26/2019 Overview: Added automatically from request for surgery [id number] Spondylolisthesis at L5-S1 level 08/26/2019 Overview: Added automatically from request for surgery [id number] documented as of this encounter (statuses as of 09/16/2019) Immunizations Name Administration Dates Next Due Influenza (IM) Preservative Free 09/15/2019 documented as of this encounter Social History Tobacco Use Types Packs/Day Years [...] Sign Reading Time Taken Comments Blood Pressure 138/67 09/15/2019 8:00 AM EDT Pulse 57 09/15/2019 8:00 AM EDT Temperature 37.2 09/15/2019 8:00 AM EDT C (98.9 F) Respiratory Rate 16 09/15/2019 8:00 AM EDT Oxygen Saturation 96% 09/15/2019 8:00 AM EDT Inhaled Oxygen Concentration - - Weight 99.9 kg (220 lb 4.8 oz) 09/14/2019 3:59 PM EDT Height 167.6 cm (5' 6") 09/14/2019 3:30 PM EDT Body Mass Index 35.56 09/14/2019 3:30 PM EDT documented in this encounter Discharge Summaries Onofre Forbes MD - 09/15/2019 8:26 AM EDT [facility] [place]. [address] Discharge Summary Patient ID: Navdeep Cordon [id number]. [id number] Admission date: 09/14/2019 Discharge date: 09/15/2019 Admitting Physician: Onofre Forbes MD Indication for Admission: Back and leg pain from spondylolisthesis Principal Diagnosis: Active Problems: Spondylolisthesis of lumbosacral region Spondylolisthesis at L5-S1 level Other medical problems managed in the hospital: None Discharged Condition: good Hospital Course: Patient was admitted and underwent the aforementioned procedure. Postoperatively had moderate back pain which largely resolved overnight. By postop day #1 he was ambulating well withno leg discomfort. He was voiding without difficulty. He was discharged home with plans to follow-up with Dr. Forbes next week. Consults: None Treatments: Minimally invasive L5-S1 fusion performed on the day of admission. Medications: Current Discharge Medication List START taking these medications methocarbamol 750 MG Tabs Commonly known as: ROBAXIN Dose: 750 mg Quantity: 50 Tab Refills: 0 Take 1 Tab by mouth THREE TIMES DAILY. OXYcodone-acetaminophen 5-325 MG Tabs Commonly known as: PERCOCET Dose: 1 Tab Quantity: 28 Tab Refills: 0 Take 1 Tab by mouth EVERY FOUR HOURS NEEDED (pain) for up to 7 days. Max Daily Amount: 6 Tabs. CONTINUE these medications which have NOT CHANGED atorvastatin 40 MG Tabs Commonly known as: LIPITOR Dose: 40 mg Refills: 0 Take 40 mg by mouth DAILY. GABAPENTIN PO Dose: 3,600 mg Refills: 0 Take 3,600 mg by mouth. LISINOPRIL PO Dose: 20 mg Refills: 0 Take 20 mg by mouth. TIZANIDINE HCL PO Refills: 0 Take by mouth. Where to Get Your Medications These medications were sent to [facility] [address] [place] [address] Hours: 8am -10pm methocarbamol 750 MG Tabs OXYcodone-acetaminophen 5-325 MG Tabs No orders of the defined types were placed in this encounter. Provider Signature: Onofre Forbes MD 09/15/2019 documented in this encounter Discharge Instructions InstructionsOnofre Forbes MD - 09/15/2019Provider's Instructions Reason for Admission or Diagnosis: S/p L5S1 fusion Activity/Restrictions: activity as tolerated, walk at least four times a day, okay to go up and downstairs, Minimize bending or twisting at the waist, No lifting over ten pounds, no driving till your follow up appointment or while taking pain medications. You will need to wear your brace while up for extended periods of time. Skin/Wound Care: Your incision was closed with staple and/or absorbable sutures in the skin with Steri-Strips followed by a dressing. You me change the dressing if it gets wet or dirty. The staple or Steri-Strips will be removed at your follow up visit with Dr Forbes. During this time, shower like normal with plastic covering of the incision and no soaking in a bath, hot tub, pool, etc. Keep wound clean with soap and water; pat dry. No ointments or lotions on incision. Observe for redness, swelling or drainage Discharge Diet: Regular Diet Special Instructions: report redness, swelling, or wound breakdown. Discharge Provider: Onofre Forbes MDTime: 08:08 {Provider's stop here} Nurse's Instructions Problems to report to your Physician: Excessive pain or discomfort Fever > 100.5 degrees Difficulty breathing Increase or smell in wound drainage Skin/Wound Care: Skin intact on discharge: {SKIN/WOUND CARE:45836} Medical Equipment/Supplies to help you at home: {MEDICAL SUPPLIES:50123} Patient's medications returned: {N/A:87930} Help arranged for you Home Health/Receiving Agency: {HOME HEALTH/RECEIVING AGENCY:48998} Other Preprinted instructions you need to know: {PREPRINTED DISCHARGE INSTRUCTIONS:27454} Follow-Up Care: Call to schedule your appointment with in {NUMBERS 0 - 7:392048} weeks, Phone Blood work needed: X-rays needed: Smoking: If you or your caregiver smoke, we recommend that you quit. For smoking cessation help, please callthe National Quit Line at . QUESTIONS OR CONCERNS AFTER DISCHARGE Dietitian Home Care Needs *Please Return Patient Satisfaction Survey* I understand these discharge instructions: Patient or Guardian Signature: Date and Time Physician clerical adjudicator Signature Date and Time documented in this encounter Plan of Treatment Date Type Specialty Care Team Description 09/19/2019 Office Visit Neurosurgery Onofre Forbes MD [address] [place] [address] [phone] Health Maintenance Due Date Last Done Comments DEPRESSION SCREENING 1979 HIV SCREENING 1982 COLONOSCOPY SCREENING 2017 ZOSTER IMMUNIZATION SERIES ( of 2017 2) DIABETES SCREENING 09/12/2020 09/12/2019 LIPID DISORDER SCREENING 08/23/2024 08/23/2019 INFLUENZA VACCINE Completed 09/15/2019 HPV IMMUNIZATION SERIES Aged Out No longer eligible based on patient's age to complete this topic MENINGOCOCCAL VACCINE IMM Aged Out No longer eligible based on patient's age to complete this topic PNEUMOCOCCAL 0-64 YRS Aged Out No longer eligible based on patient's age to complete this topic documented as of this encounter Implants Implanted Type Area Multiple Tube Winding Machine Operator Device Shelf Model / Serial Identifier Expiration / Lot Date Tristin Maciel Dbm .5cc - [id number] N/A: Spine SOFAMOR DANEK 03/28/2021 [id number] / Implanted: Qty: 1 on 09/14/2019 by Onofre Forbes MD at [facility] Lumbar / [id number] Spacer 10x28 Elevate Extra Lordotic - [id number] N/A: Spine MEDTRONIC [id number] / Implanted: Qty: 1 on 09/14/2019 by Onofre Forbes MD at [facility] Lumbar / [id number] Set Screw 4.75 Solera Voyager - [id number] N/A: Spine SOFAMOR DANEK [id number] / Implanted: Qty: 4 on 09/14/2019 by Onofre Forbes MD at [facility] Lumbar / Screw 6.5x45 4.75 Solera Voyager - [id number] N/A: Spine SOFAMOR DANEK [id number] / Implanted: Qty: 1 on 09/14/2019 by Onofre Forbes MD at [facility] Lumbar / Screw 6.5x50 4.75 Solera Voyager - [id number] N/A: Spine SOFAMOR DANEK [id number] / Implanted: Qty: 2 on 09/14/2019 by Onofre Forbes MD at [facility] Lumbar / Screw 6.5x55 4.75 Solera Voyager - [id number] N/A: Spine SOFAMOR DANEK [id number] / Implanted: Qty: 1 on 09/14/2019 by Onofre Forbes MD at [facility] Lumbar / Mode 40mm 4.75 Solera Voyager - [id number] N/A: Spine SOFAMOR DANEK [id number] / Implanted: Qty: 2 on 09/14/2019 by Onofre Forbes MD at [facility] Lumbar / documented as of this encounter Procedures Procedure Name Priority Date/Time Associated Diagnosis Comments MISC SCANNED 09/14/2019 DOCUMENT 12:00 PM EDT XR LUMBAR SPINE 2 Routine 09/14/2019 Results for OR 3 VIEWS 12:00 PM EDT this procedure are in the results section. SIGN PERMIT 09/14/2019 12:00 PM EDT TLIF MIS PEDICLE Planned Trip 09/14/2019 Spondylolisthesis of SCREW FUSION, to OR 7:15 AM EDT lumbosacral region LUMBAR LAMINECTOMY Displacement of 1L lumbosacral intervertebral disc Case Notes Special needs: O arm Stealth Perc screws Elevate cage CBC WITH DIFFERENTIAL Routine 09/12/2019 9:52 AM EDT COMPREHENSIVE METABOLIC Routine 09/12/2019 9:52 AM EDT Results for this PANEL procedure are in the results section. PROTHROMBIN TIME Routine 09/12/2019 9:52 AM EDT PARTIAL THROMBOPLASTIN TIME Routine 09/12/2019 9:52 AM EDT documented in this encounter Results XR LUMBAR SPINE 2 OR 3 VIEWS (09/14/2019 12:00 PM EDT) Specimen Impressions Performed At Imaging guidance as described. Please see operative/procedure note for further details. Signed by Juan Diego Williamson MD on 09/14/2019 1:26 PM Narrative Performed At Fluoroscopic guidance was provided to the clinical service in support of an interventional or operative procedure without a radiologist present. Limited images were obtained. Procedure Note Interface, Rad Results - 09/14/2019 1:28 PM EDT Fluoroscopic guidance was provided to the clinical service in support of an interventional or operative procedure without a radiologist present. Limited images were obtained. IMPRESSION Imaging guidance as described. Please see operative/procedure note for further details. Signed by Juan Diego Williamson MD on 09/14/2019 1:26 PM PARTIAL THROMBOPLASTIN TIME (09/12/2019 9:52 AM EDT) PTT 28.4 22.8 - 34.7 SEC [facility] Specimen Blood - Blood specimen (specimen) Performing Organization Address [facility]/Zipcode Phone Number [facility] [address] [place] [address] PROTHROMBIN TIME (09/12/2019 9:52 AM EDT) INR 0.83Comment: INR 0.79 - 1.15 [facility] Therapeutic Range: Ratio [facility] LAB[facility]ATORY 2.0 - 3.5 Protime 11.1 (L) 11.4 - 14.3 sec [facility] Specimen Blood - Blood specimen (specimen) Performing Organization Address [facility]/Zipcode Phone Number [facility] [address] [place] [address] [phone] COMPREHENSIVE METABOLIC PANEL (09/12/2019 9:52 AM EDT) Sodium 141 134 - 145 mmol/L [facility] Potassium 4.3 3.5 - 5.1 mmol/L [facility] Chloride 105 98 - 107 mmol/L [facility] CO2 27 22 - 30 mmol/L [facility] Calcium 9.9 8.3 - 10.1 mg/dl [facility] Albumin 4.3 3.5 - 5.0 g/dl [facility] BUN 17 9 - 20 mg/dl [facility] Creatinine 0.8 0.8 - 1.5 mg/dl [facility] Glucose 114 (H) 70 - 99 mg/dl [facility] Total Protein 7.3 6.3 - 8.2 g/dl [facility] Total Bilirubin 0.3 0.0 - 1.1 MG/DL [facility] AST 38 17 - 59 U/L [facility] ALT 35 21 - 72 U/L [facility] Alkaline 75 40 - 150 U/L [facility] Phosphatase [facility] eGFR >60 See Interpretation [facility] Comment: Below ml/min/1.73ml GROUP Estimated GFR Interpretation: LABORATORY Above 60ml/min/1.73m2 = Normal Renal Function 30-59 ml/min/1.73m2 = Stage 3 Chronic Kidney Disease 15-29 ml/min/1.73m2 = Stage 4 Chronic Kidney Disease Less than 15 ml/min/1.73m2 = Stage 5 Chronic Kidney Disease The GFR value is calculated using the Modification of Diet in Renal Disease ( MDRD) Study Equation which can be found at: https://www.kidney.org/content/ucbh-qhrqh-kzgvqodb BUN/Creatinine 21 6 - 22 RATIO [facility] Anion Gap 9 3 - 11 mmol/L [facility] A/G Ratio 1.4 0.8 - 2.0 ratio [facility] Specimen Blood - Blood specimen (specimen) Performing Organization Address City/State/Zipcode Phone Number [facility] [address] [place] [address] CBC WITH DIFFERENTIAL (09/12/2019 9:52 AM EDT) WBC Count 13.85 (H) 4.23 - 9.07 K/uL [facility] RBC Count 4.58 4.30 - 5.89 M/UL [facility] Hemoglobin 13.5 (L) 13.7 - 17.5 g/dL [facility] Hematocrit 41.7 40.1 - 51.0 % [facility] MCV 91.0 79.0 - 92.2 FL [facility] MCH 29.5 25.7 - 32.2 PG [facility] MCHC 32.4 32.3 - 36.5 g/dL [facility] Platelet Count 262 163 - 337 K/uL [facility] MPV 10.5 9.4 - 12.4 FL [facility] RDW 12.8 11.6 - 14.4 % [facility] Neutrophil % 70.1 (H) 34.0 - 67.9 % [facility] Lymphocyte % 18.7 (L) 21.8 - 53.1 % [facility] Monocyte % 9.0 5.3 - 12.2 % [facility] Eosinophil % 1.3 0.8 - 7.0 % [facility] Basophil % 0.4 0.2 - 1.2 % [facility] nRBC % 0.0 0.0 - 0.2 % [facility] Neutrophil # 9.71 (H) 1.78 - 5.38 K/UL [facility] Lymphocyte # 2.59 1.32 - 3.57 K/UL [facility] Monocyte # 1.24 (H) 0.30 - 0.82 K/UL [facility] Eosinophil # 0.18 0.04 - 0.54 K/UL [facility] Basophil # 0.06 0.01 - 0.08 K/UL [facility] Immature Gran % 0.5 (H) 0.0 - 0.4 % [facility] Immature Gran # 0.07 (H) 0.00 - 0.03 K/uL [facility] NRBC # 0.00 0.00 - 0.12 K/uL [facility] Specimen Blood - Blood specimen (specimen) Performing Organization Address City/State/Zipcode Phone Number [facility] [address] [place] [address] [phone] documented in this encounter Visit Diagnoses Diagnosis Spondylolisthesis of lumbosacral region Acquired spondylolisthesis Displacement of lumbosacral intervertebral disc Displacement of lumbar intervertebral disc without myelopathy Spondylolisthesis at L5-S1 level Congenital spondylolisthesis documented in this encounter Administered Medications Medication Order MAR Action Action Date Dose Rate Site acetaminophen (TYLENOL) tablet Given 09/14/2019 6:43 AM EDT 650 mg 650 mg 650 mg, Oral, X1, 1 dose, First dose on Thu09/14/19 at 0600 atorvastatin (LIPITOR) tablet 40 mg Given 09/15/2019 8:08 AM EDT 40 mg 40 mg, Oral, DAILY, First dose on Thu09/14/19 at 1540, Until Discontinued Given 09/14/2019 4:22 PM EDT 40 mg ceFAZolin (ANCEF) IV premix New Bag 09/14/2019 11:21 PM EDT 1,000 mg 100 mL /hr 1,000 mg 1,000 mg, Intravenous, Q8 HRS, 2 doses, First dose on Thu09/14/19 at 1540, Last dose on Thu09/14/19 at 2340 New Bag 09/14/2019 4:21 PM EDT 1,000 mg FentaNYL (PF) (SUBLIMAZE) injection (PF) 50 Push 09/14/2019 12:10 PM EDT 50 mcg mcg 50 mcg, Intravenous Push, PRU Q5MIN PRN, Starting Thu09/14/19 at 1112, Until Thu09/14/19 at 1518, Moderate Pain (pain scale 4-6) - IV - 1st line - if immediate effect required or patient cannot tolerate PO, Severe Pain (pain scale 7-10) - IV - 1st line - if immediate effect required or patient cannot tolerate PO, 4 Recovery Push 09/14/2019 11:55 AM EDT 50 mcg Push 09/14/2019 11:32 AM EDT 50 mcg gabapentin (NEURONTIN) capsule 1,200 mg Given 09/15/2019 9:36 AM EDT 1,200 mg 1,200 mg, Oral, TID, 1 dose, First dose on Dina 09/15/19 at 0900 HYDROmorphone (DILAUDID) syringe 0.5 mg Push 09/14/2019 1:23 PM EDT 0.5 mg 0.5 mg, Intravenous Push, PRU Q5MIN PRN, 2 doses, Starting Thu09/14/19 at 1112, Until Thu09/14/19 at 1323, Moderate Pain (pain scale 4-6)IV 2nd line- if immediate effect required or cannot tolerate PO & still had moderate pain 2 hrs after admin of 1st line agent or did not tolerate 1st line agent, Severe Pain (pain scale 7-10)IV 2nd line - if immediate effect required or cannot tolerate PO & no still has severe pain 1 hr after admin of 1st line agent or did not tolerate 1st line agent, Use if first opioid ineffective, 4 Recovery Push 09/14/2019 12:40 PM EDT 0.5 mg HYDROmorphone (DILAUDID) syringe 0.5 mg Push 09/14/2019 1:57 PM EDT 0.5 mg 0.5 mg, Intravenous, X1 PRN, 2 doses, Starting Thu09/14/19 at 1335, Until Thu09/14/19 at 2359, Severe Pain (pain scale 7-10)IV 2nd line - if immediate effect required or cannot tolerate PO & no still has severe pain 1 hr after admin of 1st line agent or did not tolerate 1st line agent influenza virus vaccine Given 09/15/2019 9:41 AM 0.5 mL Arm - Upper Right (FLUZONE,FLULAVAL) injection EDT 0.5 mL 0.5 mL, Intramuscular, X1 BEFORE DISCHARGE, 1 dose, First dose on Thu09/14/19 at 1730 ketorolac (TORADOL) injection 30 mg Push 09/14/2019 1:53 PM EDT 30 mg 30 mg, Intravenous Push, NOW, 1 dose, Thu09/14/19 at 1340 lactated ringers IV Continued from 09/14/2019 11:31 AM 100 mL/hr Intravenous, at 100 mL/hr, Procedure EDT PRU CONTINUOUS, Starting Thu09/14/19 at 1120, Until Thu09/14/19 at 1518, 4 Recovery lisinopril (PRINIVIL, ZESTRIL) tablet 20 mg Given 09/15/2019 8:08 AM EDT 20 mg 20 mg, Oral, DAILY, First dose on Thu09/14/19 at 1540, Until Discontinued Given 09/14/2019 4:31 PM EDT 20 mg methocarbamol (ROBAXIN) tablet 750 mg Given 09/15/2019 8:08 AM EDT 750 mg 750 mg, Oral, TID, First dose on Thu09/14/19 at 1600, Until Discontinued Given 09/14/2019 11:21 PM EDT 750 mg Given 09/14/2019 4:22 PM EDT 750 mg morphine syringe 3 mg Given 09/15/2019 2:22 AM EDT 3 mg 3 mg, Intravenous Push, Q2 HRS PRN, Starting Thu09/14/19 at 1536, Until Dina 09/15/19 at 1314, Severe Pain (pain scale 7-10) - IV - 1st line - if immediate effect required or patient cannot tolerate PO, Severe Pain (pain scale 7-10)IV 2nd line - if immediate effect required or cannot tolerate PO & no still has severe pain 1 hr after admin of 1st line agent or did not tolerate 1st line agent Given 09/14/2019 7:00 PM EDT 3 mg naloxone (NARCAN) injection 0.04 mg 0.04 mg, Intravenous, X1 PRN, 2 doses, Starting Thu09/14/19 at 1536, Until Dina 09/15/19 at 1314, Respiratory rate < ___, 10 ondansetron (ZOFRAN ODT) soluble tablet 4 mg 4 mg, Oral, Q8 HRS PRN, 4 doses, Starting Thu09/14/19 at 1536, Until Dina 09/15 at 1314, Nausea/Vomiting - PO - 1st line - if immediate effect not required and patient can tolerate PO ondansetron (ZOFRAN) injection 4 mg 4 mg, Intravenous, Q8 HRS PRN, Starting Thu09/14/19 at 1536, Until Dina at 1314, Nausea/Vomiting - IV - 1st line - If immediate effect required or patient cannot tolerate PO OXYcodone-acetaminophen (PERCOCET) 5-325 mg 1 Given 09/15/2019 10:27 AM EDT 1 Tab Tab 1 Tab, Oral, Q4 HRS PRN, Starting Thu09/14/19 at 1536, Until Dina 09/15/19 at 1314, Moderate Pain (pain scale 4-6) - PO - 1st line - if immediate effect not required and patient can tolerate PO Given 09/15/2019 7:03 AM EDT 1 Tab Given 09/14/2019 11:21 PM EDT 1 Tab prochlorperazine (COMPAZINE) injection 10 mg 10 mg, Intravenous, Q8 HRS PRN, Starting Thu09/14/19 at 1536, Until Dina at 1314, Nausea/Vomiting - IV - 2nd line - if immediate effect required or patient cannot tolerate PO and no relief 1 hours after administration of 1st line agent prochlorperazine (COMPAZINE) tablet 10 mg 10 mg, Oral, Q8 HRS PRN, Starting Thu09/14/19 at 1536, Until Dina 09/15/19 at 1314, Nausea/Vomiting - PO - 2nd line - if immediate effect not required and patient can tolerate PO and no relief 4 hours after administration of 1st line agent documented in this encounter Insurance Payer Benefit Plan / Subscriber ID Effective Phone Address Type Group Dates [employer] xxxxxxxxxx Effective [facility] for all Administration [employer] dates documented as of this encounter Advance Directives Code Status Date Activated Date Inactivated Comments Full Code 09/14/2019 7:35 PM Does the patient have decision making capacity? Yes Order was discussed with: Patient I discussed all options and patient/surrogate requested and agreed to: Full Code
--- OUTSIDE RECORDS SUMMARY | 2019-09-25 17:11 | XMS REPORT | Summary of Care ---
:1965 Author Organization [facility] Address [address] [facility] [place] [address] Care Team Providers Name Role Phone None, [place] Primary Care Provider Unavailable Reason for Visit Reason Comments Surgical Followup follow up Encounter Details Date Type Department Care Team Description 09/19/2019 Office Visit [facility] Neurosurgery [place], Spondylolisthesis of [address] [facility] MD Onofre [place] [address] [address] [facility] [facility] (Primary Dx) [phone] [place] [address] [phone] Allergies Active Allergy Reactions Severity Noted Date Comments Lexapro LINE SUPPLY Reaction High 09/14/2019 restlessness Trazodone Other 08/23/2019 Suicidal thoughts Bupropion Rash 08/23/2019 documented as of this encounter (statuses as of 09/19/2019) Medications Medication Sig Dispensed Refills Start Date End Date Status LISINOPRIL PO Take 20 mg by 0 Active mouth. GABAPENTIN PO Take 3,600 mg 0 Active by mouth. atorvastatin (LIPITOR) Take 40 mg by 0 Active 40 MG Oral Tab mouth DAILY. TIZANIDINE HCL PO Take by mouth. 0 Active methocarbamol (ROBAXIN) Take 1 Tab by 50 Tab 0 09/15/2019 Active 750 MG Oral Tab mouth THREE TIMES DAILY. OXYcodone-acetaminophen Take 1 Tab by 28 Tab 0 09/15/2019 09/22/2019 Active (PERCOCET) 5-325 MG mouth EVERY Oral Tab FOUR HOURS NEEDED (pain) for up to 7 days. Max Daily Amount: 6 Tabs. OXYcodone-acetaminophen Take 1 Tab by 28 Tab 0 09/19/2019 09/26/2019 Active (PERCOCET) 5-325 MG mouth EVERY Oral Tab FOUR HOURS NEEDED (pain) for up to 7 days. Max Daily Amount: 6 Tabs. documented as of this encounter (statuses as of 09/19/2019) Active Problems Problem Noted Date Spondylolisthesis of lumbosacral region 08/26/2019 Overview: Added automatically from request for surgery [id number] Spondylolisthesis at L5-S1 level 08/26/2019 Overview: Added automatically from request for surgery [id number] documented as of this encounter (statuses as of 09/19/2019) Immunizations Name Administration Dates Next Due Influenza [...] Sign Reading Time Taken Comments Blood Pressure 151/94 09/19/2019 10:17 AM EDT Pulse - - Temperature - - Respiratory Rate - - Oxygen Saturation - - Inhaled Oxygen Concentration - - Weight 88.5 kg (195 lb) 09/19/2019 10:17 AM EDT Height 167.6 cm (5' 6") 09/19/2019 10:17 AM EDT Body Mass Index 31.47 09/19/2019 10:17 AM EDT documented in this encounter Progress Notes Onofre Forbes MD - 09/19/2019 10:20 AM EDT PATIENT: Navdeep Cordon : 1965 DATE OF SERVICE: 09/19/2019 REFERRING PRACTITIONER: [place]ona None PRIMARY CARE PROVIDER: None, Wenona CHIEF COMPLAINT: Chief Complaint Patient presents with Surgical Followup follow up HISTORY OF PRESENT ILLNESS: Mr. Cordon returns almost a week following a invasive interbody fusion. He reports significant improvement in his preoperative symptoms. He still has moderate discomfort and I will refill his Percocet. I would like him to return in 3 weeks with x-rays. Past Medical History: Diagnosis Date Anxiety Essential (primary) hypertension GERD (gastroesophageal reflux disease) Psychiatric problem PTSD Past Surgical History: Procedure Laterality Date NM APPENDECTOMY NM ARTHRODESIS POSTERIOR INTERBODY LUMBAR N/A 09/14/2019 Procedure: TLIF MIS PEDICLE SCREW FUSION, LUMBAR LAMINECTOMY 1L L5S1; Surgeon : Onofre Forbes MD; Location: [facility] MAIN OR NM NERVOUS SYSTEM SURGERY UNLISTED Laminectomy UNLISTED PROCEDURE,MUSCULOSKELE Bilateral carpal tunnel release History reviewed. No pertinent family history. Social [...] file Gets together: Not on file Attends restorationism service: Not on file Active member of [...] MG Oral Tab GABAPENTIN PO LISINOPRIL PO methocarbamol (ROBAXIN) 750 MG Oral Tab OXYcodone-acetaminophen (PERCOCET) 5-325 MG Oral Tab OXYcodone-acetaminophen (PERCOCET) 5-325 MG Oral Tab TIZANIDINE HCL PO Allergies Allergen Reactions Lexapro LINE SUPPLY Reaction restlessness Trazodone Other Suicidal thoughts Wellbutrin [Bupropion] Rash REVIEW OF SYSTEMS: BP (!) 151/94 | Ht 5' 6" (1.676 m) | Wt 195 lb (88.5 kg) | BMI 31.47 kg/m Body mass index is31.47 kg/m. Psychological ROS: negative Ophthalmic ROS: negative ENT ROS: negative Hematological and Lymphatic ROS: negative Endocrine ROS: negative Respiratory ROS: no cough, shortness of breath, or wheezing Cardiovascular ROS: no chest pain or dyspnea on exertion Gastrointestinal ROS: no abdominal pain, change in bowel habits, or black or bloody stools Genito-Urinary ROS: negative Musculoskeletal ROS: negative Neurological ROS: negative IMPRESSION / PLAN: ICD-9-CM ICD-10-CM 1. Spondylolisthesis of lumbosacral region 738.4 M43.17 XR LUMBAR SPINE 2 OR 3 VIEWS Author: Onofre Forbes MD 09/19/2019 10:27 documented in this encounter Plan of Treatment Date Type Specialty Care Team Description 10/10/2019 Office Visit Neurosurgery Onofre Forbes MD [address] [place] [address] [phone] Name Type Priority Associated Diagnoses Order Schedule XR LUMBAR SPINE 2 Imaging Routine Spondylolisthesis of Expected: OR 3 VIEWS lumbosacral region 10/10/2019, Expires: 09/19/2020 Health Maintenance Due Date Last Done Comments DEPRESSION SCREENING 1979 HIV SCREENING 1982 COLONOSCOPY SCREENING 2017 ZOSTER IMMUNIZATION SERIES (1 of 2017 2) DIABETES SCREENING 09/12/2020 09/12/2019 [...] of this encounter Implants Implanted Type Area Medical Staff Services Manager Device Shelf Model / Serial Identifier Expiration / Lot Date Tristin Maciel Dbm .5cc - [id number] N/A: Spine SOFAMOR DANEK 03/28/2021 [id number] / Implanted: Qty: 1 on 09/14/2019 by Onofre Forbes MD at [facility] Lumbar / [id number] Spacer 10x28 Elevate Extra Lordotic - [id number] N/A: Spine MEDTRONIC [id number] / Implanted: Qty: 1 on 09/14/2019 by Onofre Forbes MD at [facility] Lumbar / [id number] Set Screw 4.75 Solera Voyager - [id number] N/A: Spine SOFAMOR DANEK [id number] / Implanted: Qty: 4 on 09/14/2019 by Onofre Forbes MD at [facility] Lumbar / Screw 6.5x45 4.75 Solera Voyager - [id number] N/A: Spine SOFAMOR DANEK [id number] / Implanted: Qty: 1 on 09/14/2019 by Onofre Forbes MD at [facility] Lumbar / Screw 6.5x50 4.75 Solera Voyager - [id number] N/A: Spine SOFAMOR DANEK [id number] / Implanted: Qty: 2 on 09/14/2019 by Onofre Forbes MD at [facility] Lumbar / Screw 6.5x55 4.75 Solera Voyager - [id number] N/A: Spine SOFAMOR DANEK [id number] / Implanted: Qty: 1 on 09/14/2019 by Onofre Forbes MD at [facility] Lumbar / Mode 40mm 4.75 Solera Voyager - [id number] N/A: Spine SOFAMOR DANEK [id number] / Implanted: Qty: 2 on 09/14/2019 by Onofre Forbes MD at [facility] Lumbar / documented as of this encounter Results Not on filedocumented in this encounter Visit Diagnoses Diagnosis Spondylolisthesis of lumbosacral region - Primary Acquired spondylolisthesis documented in this encounter Insurance Payer Benefit Plan / Subscriber ID Effective Phone Address Type Group Dates [employer] xxxxxxxxxx Effective [facility]ALTHC[facility] for all Administration [employer]IANCE [employer]IANCE dates documented as of this encounter Advance Directives Code Status Date Activated Date Inactivated Comments Full Code 09/14/2019 7:35 PM Does the patient have decision making capacity? Yes Order was discussed with: Patient I discussed all options and patient/surrogate requested and agreed to: Full Code
[2019-09-25] MEDS ORDERED: Ketorolac INJ* 30 MG/ML 1 ML VIAL IV PUSH ONE (17:40)
[2019-09-25] MEDS ORDERED: Morphine 4 MG/ML VIAL (1 ml) 4 MG/ML VIAL IV ONE ×2 (17:40→20:01)
[2019-09-25 17:59] LABS: ABS Basophils 0.1 10^3/ul (0-0.2); ABS Eosinophils 0.1 10^3/ul (0-0.6); ABS Lymphocytes 2.8 10^3/ul (1.0-4.8); ABS Monocytes 0.8 10^3/ul (0-0.8); ABS Neutrophils 5.6 10^3/ul (1.5-7.7); Eosinophil % 1.3 %; Hematocrit 39 % (42-52); Hemoglobin 13.2 g/dL (14.0-18.0); Mean Corpuscular HGB Conc 34 g/dL (31-36); Mean Corpuscular Hemoglobin 30 pg (27-31); Mean Corpuscular Volume 89 fL (80-94); Platelet Count 471 10^3/uL (150-450); Red Blood Count 4.34 10^6 /uL (4.18-5.48); Red Cell Distribution Width 13 % (10-15); White Blood Count 9.5 10^3/uL (3.5-10.8)
[2019-09-25 18:16] LABS: Albumin 4.8 g/dL (3.2-5.2); Albumin/Globulin Ratio 1.6 (1-3); BUN/Creatinine Ratio 14.5 (8-20); C Reactive Protein 1.74 mg/L (<8.01); Calcium 10.5 mg/dL (8.6-10.3); EGFR African American 117.7 (>60); EGFR Non-African American 97.3 (>60); Total Bilirubin 0.4 mg/dL (0.2-1.0); Total Protein 7.8 g/dL (6.4-8.9)
[2019-09-25] MEDS ORDERED: Methocarbamol* 100 MG/ML 10 ML VIAL IV ONE (18:40)
--- NOTE | 2019-09-25 18:48 | ED ---
Back Pain - HPI Summary HPI Summary: 54-year-old male presents with back pain for the past 2 days. Had surgery on the at [facility]. He states that since then he has been having pain but has been using the pain medication as prescribed. He states that he is currently out of pain meds. States that today he went down to tie his shoes this morning and started having increasing back pain. He then sat on a wooden bench at [facility] and back pain increased. He states his pain is right where his surgery was. Denies any urinary symptoms. No loss of bowel or bladder. No saddle anesthesia. No pain in his legs. No weakness. No numbness or tingling in his legs. No fevers. - History of Current Complaint Chief Complaint: EDBackInjuryPain Stated Complaint: BACK PAIN POST SURGERY PER EMS Time Seen by Provider: 09/25/19 17:35 Pain Intensity: 7 - Allergies/Home Medications Allergies/Adverse Reactions: Allergies Allergy/AdvReac Type Severity Reaction Status Date / Time apple Allergy Unknown Verified 09/25/19 19:13 Reaction Details bupropion Allergy Unknown Verified 02/03/19 17:22 Reaction Details escitalopram [From Lexapro] Allergy See Comment Verified 02/03/19 17:22 trazodone Allergy See Comment Verified 02/03/19 17:22 PMH/Surg Hx/FS Hx/Imm Hx Endocrine/Hematology History: Denies: Hx Anticoagulant Therapy, Hx Diabetes Cardiovascular History: Reports: Hx Hypertension GI History: Reports: Hx Diverticulosis History: Denies: Hx Renal Disease Psychiatric History: Reports: Hx Depression, Hx Post Traumatic Stress Disorder - Surgical History Surgery Procedure, Year, and Place: [facility] Infectious Disease History: No Infectious Disease History: Denies: Traveled Outside the [place] in Last 30 Days - Family History Known Family History: Positive: Cardiac Disease - Social History Alcohol Use: None Hx Substance Use: No Substance Use Type: Reports: None Hx Tobacco Use: Yes Smoking Status (MU): Former Smoker Amount Used/How Often: 1/2 ppd Review of Systems Negative: Fever Negative: Chest Pain Negative: Shortness Of Breath Positive: Myalgia - back pain All Other Systems Reviewed And Are Negative: Yes Physical Exam Triage Information Reviewed: Yes Vital Signs On Initial Exam: Initial Vitals Temp Pulse Resp BP Pulse Ox 98.1 F 82 16 195/139 94 09/25/19 16:40 09/25/19 16:40 09/25/19 16:40 09/25/19 16:40 09/25/19 16:40 Vital Signs Reviewed: Yes Appearance: Positive: Well-Appearing Skin: Positive: Warm, Dry Head/Face: Positive: Normal Head/Face Inspection Eyes: Positive: Normal, Conjunctiva Clear ENT: Positive: Pharynx normal Respiratory/Lung Sounds: Positive: Clear to Auscultation, Breath Sounds Present Cardiovascular: Positive: Normal, RRR Musculoskeletal: Positive: Strength/ROM Intact - back with pain, Other - incision site clean dry intact, no hematoma felt, sensation grossly intact, good pulses Neurological: Positive: Normal, Reflexes Intact - patella, Normal Gait Psychiatric: Positive: Normal Procedures - Sedation Patient Received Moderate/Deep Sedation with Procedure: No Diagnostics - Vital Signs Vital Signs Temp Pulse Resp BP Pulse Ox 09/25/19 18:18 73 145/95 90 09/25/19 17:45 16 09/25/19 17:40 187/106 09/25/19 17:09 184/128 09/25/19 16:56 182/110 09/25/19 16:40 98.1 F 82 16 195/139 94 - Laboratory Lab Results: Lab Results 09/25/19 09/25/19 Range/Units 17:53 17:53 WBC 9.5 (3.5-10.8) 10^3/uL RBC 4.34 (4.18-5.48) 10^6 /uL Hgb 13.2 L (14.0-18.0) g/dL Hct 39 L (42-52) % MCV 89 (80-94) fL MCH 30 (27-31) pg MCHC 34 (31-36) g/dL RDW 13 (10-15) % Plt Count 471 H (150-450) 10^3/uL MPV 7.0 L (7.4-10.4) fL Neut % (Auto) 59.7 % Lymph % (Auto) 30.0 % [place] % (Auto) 8.1 % Eos % (Auto) 1.3 % Baso % (Auto) 0.9 % Absolute Neuts (auto) 5.6 (1.5-7.7) 10^3/ul Absolute Lymphs (auto) 2.8 (1.0-4.8) 10^3/ul Absolute Monos (auto) 0.8 (0-0.8) 10^3/ul Absolute Eos (auto) 0.1 (0-0.6) 10^3/ul Absolute Basos (auto) 0.1 (0-0.2) 10^3/ul Absolute Nucleated RBC 0.0 10^3/ul Nucleated RBC % 0.0 Sodium 140 (135-145) mmol/L Potassium 4.0 (3.5-5.0) mmol/L Chloride 105 (101-111) mmol/L Carbon Dioxide 24 (22-32) mmol/L Anion Gap 11 (2-11) mmol/L BUN 12 (6-24) mg/dL Creatinine 0.83 (0.67-1.17) mg/dL Est GFR ( Amer) 117.7 (>60) Est GFR (Non-Af Amer) 97.3 (>60) BUN/Creatinine Ratio 14.5 (8-20) Glucose 150 H (70-100) mg/dL Calcium 10.5 H (8.6-10.3) mg/dL Total Bilirubin 0.40 (0.2-1.0) mg/dL AST 27 (13-39) U/L ALT 52 (7-52) U/L Alkaline Phosphatase Pending C-Reactive Protein 1.74 (<8.01) mg/L Total Protein 7.8 (6.4-8.9) g/dL Albumin 4.8 (3.2-5.2) g/dL Globulin 3.0 (2-4) g/dL Albumin/Globulin Ratio 1.6 (1-3) Result Diagrams: 09/25/19 17:53 09/25/19 17:53 Lab Statement: Any lab studies that have been ordered have been reviewed, and results considered in the medical decision making process. - CT back CT Interpretation Completed By: Radiologist Summary of CT Findings: IMPRESSION: Expected findings post L5-S1 posterior fusion and discectomy. No additional findings to correlate with patient's symptomatology. Re-Evaluation - Re-Evaluation First Eval Change: Unchanged Comment: still having pain Second Eval Re-Evaluation Time: 20:03 Change: Improved Comment: feeling better Back Pain Course/Dx - Course Course Of Treatment: 54-year-old male presents with back pain for the past 2 days. Had surgery on the at [facility]. He states that since then he has been having pain but has been using the pain medication as prescribed. He states that he is currently out of pain meds. States that today he went down to tie his shoes this morning and started having increasing back pain. He then sat on a wooden bench at [facility] and back pain increased. He states his pain is right where his surgery was. Denies any urinary symptoms. No loss of bowel or bladder. No saddle anesthesia. No pain in his legs. No weakness. No numbness or tingling in his legs. No fevers. On exam incision healing well with no infection noted. Tenderness over her lower back. Neurovascularly intact. No neuro deficit noted. CT back shows postsurgical changes. White blood cell count CRP are normal. Gave morphine and Robaxin with improvement. We'll prescribe pain medication and muscle relaxer. Told to call neurosurgery. Patient understands and agrees with plan. - Diagnoses Differential Diagnosis/HQI/PQRI: Positive: Herniated Disc, Strain, Sprain Provider Diagnoses: Back pain Discharge ED - Sign-Out/Discharge Documenting (check all that apply): Patient Departure - Discharge Plan Condition: Good Disposition: HOME Prescriptions: HYDROcodone/ACETAMIN 5-325 MG* [[place] 5-325 TAB*] 1 tab PO Q6H PRN #12 tab MDD 4 PRN Reason: Pain - Severe Methocarbamol TAB* [Robaxin 500 MG TAB*] 500 mg PO TID PRN #15 tab PRN Reason: Pain - Moderate Patient Education Materials: Back Pain (ED) Referrals: Kaitlynn Wing [facility] [Primary Care Provider] - Additional Instructions: Take muscle relaxers three times a day Use ibuprofen or Tylenol for pain every 6 hours, take norco every 6 hours for pain ice/heat area, move as much as possible Follow up with neurosurgeon Return to ED if develop any new or worsening symptoms - Billing Disposition and Condition Condition: GOOD Disposition: Home - Attestation Statements Provider Attestation: I was available for consultation for this patient. I did not evaluate the patient or participate in any medical decision making or disposition decisions unless I am specifically named in the chart as having consulted on the patient. If I have consulted on the patient, please see my own ED note on the patient encounter. Amrita Razo MD
[2019-09-25] MEDS ORDERED: Dexamethasone IV* 4 MG/ML 1 ML (4 MG) IV SLOW PU ONE (20:01)
[2019-09-25] MEDS ORDERED: Lidocaine PATCH 5%* 1 PATCH TRANSDERM ONE (20:07)
[2019-09-25 20:21] VITALS: BP 152/88
[2019-09-25] MEDS ORDERED: Lidocaine Patch REMOVE* 1 NOTE MISC SCH (21:00)
== END 2019-09-25 20:21 | disposition home or self-care (01) ==
LOC: ED 16:38
DX: M54.9 Dorsalgia, unspecified (principal); I10 Essential (primary) hypertension; Z87.891 Personal history of nicotine dependence; Z88.8 Allergy status to other drugs, medicaments and biological substances
CPT/HCPCS: 36415; 72131; 80053; 85025; 86140; 96374; 96375; 96376; 99283; A9270-GY; J1100; J1885; J2270; J2800